=== PATIENT | male | born 1960 | race Caucasian/White ===

== ENCOUNTER 2016-06-18 11:56 | Observation (INO) | payer OTHER ==
[2016-06-18] VITALS (11 sets, daily range): BP systolic 101–171; BP diastolic 62–106; PULSE 66–83; RESP 12–18; TEMP 97.9–98.3; O2SAT 96–98
[~2016-06-18] VITALS: Ht 177.8 cm; Wt 77.5 kg
[~2016-06-18 11:56] MED LIST: 1-ME1LIQ PO; IBUP600T26 PO; PRIN10TA PO; PROT40TA PO
[2016-06-18] MEDS ORDERED: HEPARIN SODIUM - IV 10,000 UNITS/10 ML VIAL IV ONE (12:15)
[2016-06-18] MEDS ORDERED: HEPARIN-D5W INJ 250 ML IV SCH (12:15)
[2016-06-18] MEDS ORDERED: SODIUM CHLORIDE 0.9% FLUSH 5 ML FLUSH IVF PRN ×3 (12:15→17:00)
[2016-06-18] MEDS ORDERED: ASPIRIN 81 MG CHEW TAB PO ONE (12:15)
[2016-06-18] MEDS ORDERED: AMLO5TAB2 PO (12:28)
[2016-06-18] MEDS ORDERED: LISI10TA3 PO (12:28)
[2016-06-18 12:34] LABS: AUTOMATED NEUTROPHIL # 5.9 TH/MM3 (1.8-7.7); BASOPHIL # 0.1 TH/MM3 (0-0.2); BASOPHIL % 0.7 % (0.0-2.0); EOSINOPHIL # 0.1 TH/MM3 (0-0.4); LYMPH % 23.1 % (9.0-44.0); LYMPHOCYTE # 1.9 TH/MM3 (1.0-4.8); MEAN CELL VOLUME 91.1 FL (80.0-100.0); MEAN CORPUSCULAR HEMOGLOBIN 31.5 PG (27.0-34.0); MEAN CORPUSCULAR HGB CONC 34.6 % (32.0-36.0); MONO % 4.5 % (0.0-8.0); NEUT % 70.7 % (16.0-70.0); PLATELET COUNT 299 TH/MM3 (150-450); RED BLOOD COUNT 4.73 MIL/MM3 (4.50-5.90); RED CELL DISTRIBUTION WIDTH 12.5 % (11.6-17.2); WHITE BLOOD COUNT 8.4 TH/MM3 (4.0-11.0)
[2016-06-18 12:35] LABS: HEMO FLAGS AUTO DIFF
[2016-06-18] MEDS: NITROGLYCERIN 0.4 MG SL 25 TABS/BTL SL SCH ×3 (12:38→12:51)
[2016-06-18 12:42] LABS: CHLORIDE 108 MEQ/L (98-107); SODIUM (NA) 143 MEQ/L (136-145)
[2016-06-18 12:43] LABS: POTASSIUM 3.6 MEQ/L (3.5-5.1)
[2016-06-18 12:45] LABS: ANION GAP 9 MEQ/L (5-15); BICARBONATE 26.5 MEQ/L (21.0-32.0); BLOOD UREA NITROGEN 11 MG/DL (7-18); MAGNESIUM 2.3 MG/DL (1.5-2.5)
--- NOTE | 2016-06-18 12:45 | RADHPO ---
EXAM DATE/TIME: 06/18/2016 12:28 [place] COMPARISON: CHEST SINGLE AP, November 30, 2015, 22:02. INDICATIONS : Chest pain, short of breath, dizziness. MEDICAL HISTORY : Hypertension. Cardiovascular disease. SURGICAL HISTORY : None. ENCOUNTER: Initial ACUITY: 1 day PAIN SCORE: 5/10 LOCATION: Bilateral chest FINDINGS: A single view of the chest demonstrates the lungs to be symmetrically aerated without evidence of mas s, infiltrate or effusion. The cardiomediastinal contours are unremarkable. Osseous structures are intact. CONCLUSION: No acute disease. Alan Soliz Jr., MD on June 18, 2016 at 12:43 Board Certified Radiologist. This report was verified electronically.
[2016-06-18 12:46] LABS: APTT (PATIENT) 28.7 SEC (24.3-30.1); PROTHROMBIN TIME - PATIENT 10.8 SEC (9.8-11.6)
[2016-06-18 12:49] LABS: GLOMERULAR FILTRATION RATE 69 ML/MIN (>89)
[2016-06-18 12:52] LABS: CREATINE KINASE 136 U/L (39-308)
[2016-06-18 12:54] LABS: PLATELET ESTIMATE SMEAR NORMAL (NORMAL); PLATELET MORPHOLOGY NORMAL (NORMAL); SCAN/DIFF AUTO DIFF CONFIRMED
--- NOTE | 2016-06-18 12:59 | PD ---
HPI Chief Complaint: Chest Pain Time Seen by Provider: 12:05 Travel History International Travel<30 days: No Contact w/Intl Traveler<30days: No Traveled to known affect area: No History of Present Illness HPI 55-year-old male with history of hypertension and tobacco abuse who presents the emergency department with complaint of chest pain. Patient states approximately 30 minutes ago he had a bad wave of lightheadedness and dizziness with a near syncopal episode. Shortly thereafter approximate 20 minutes prior to arrival he developed substernal chest pain. Describes this as a bandlike sensation wrapping around his anterior chest. No radiation to the back, neck. Patient states that the pain is moderate, approximately 7 out of 10 at this time. He denies any known history of cardiac disease and per chart review he had a left CT scan stress test in November 2015 that was negative. Patient believes that he has also been to [facility] in the interim and was told that he had a "blockage", but does not remember the exact date of this. The never did a cardiac catheterization from his description. No associated shortness of breath, vomiting. PFSH Past Medical History Arthritis: Yes Asthma: No Autoimmune Disease: No Heart Rhythm Problems: No Cardiac Catheterization: No Cardiovascular Problems: Yes High Cholesterol: No Congestive Heart Failure: No COPD: No Coronary Artery Disease: Yes Diabetes: No Diminished Hearing: No Diverticulitis: Yes (Meckel's) Headaches: Yes Hypertension: Yes Kidney Stones: Yes ?: Not Past Surgical History Abdominal Surgery: Yes (Meckel's DIVERTICULUM) Appendectomy: Yes Coronary Artery Bypass Graft: No Social History Alcohol Use: Yes (1-4 BEERS A DAY) Tobacco Use: Yes (ppd) Substance Use: No Allergies-Medications (Allergen,Severity, Reaction): Coded Allergies: Penicillin (Verified Allergy, Severe, Anaphylaxis, 11/30/15) Reported Meds & Prescriptions Reported Meds & Active Scripts Active Reported Lisinopril 10 Mg Tab 10 Mg PO DAILY Amlodipine (Amlodipine Besylate) 5 Mg Tab 5 Mg PO DAILY Review of Systems Except as stated in HPI: all other systems reviewed are Neg Physical Exam Narrative GENERAL: Middle-aged male appearing older than stated age in mild distress SKIN: Warm and dry. HEAD: Normocephalic. EYES: No scleral icterus. No injection or drainage. ENT: No nasal bleeding or discharge. Mucous membranes pink and moist. NECK: Supple without bruit CARDIOVASCULAR: Regular rate and rhythm. No murmur appreciated. No reproducible tenderness to palpation of chest RESPIRATORY: No accessory muscle use. Clear to auscultation. Breath sounds equal bilaterally. GASTROINTESTINAL: Abdomen soft, non-tender, nondistended. MUSCULOSKELETAL: No edema. NEUROLOGICAL: Awake and alert. Normal speech. PSYCHIATRIC: Appropriate mood and affect; insight and judgment normal. Data Data Last Documented VS Vital Signs Date Time Temp Pulse Resp B/P Pulse Ox O2 Delivery O2 Flow Rate FiO2 06/18/16 12:58 16 06/18/16 12:46 73 134/81 98 Room Air 06/18/16 12:00 98.1 Orders Electrocardiogram (06/18/16 12:13) Basic Metabolic Panel (Bmp) (06/18/16 12:13) B-Type Natriuretic Peptide (06/18/16 12:13) Ckmb (Isoenzyme) Profile (06/18/16 12:13) Complete Blood Count With Diff (06/18/16 12:13) Magnesium (Mg) (06/18/16 12:13) Prothrombin Time / Inr (Pt) (06/18/16 12:13) Act Partial Throm Time (Ptt) (06/18/16 12:13) Troponin I (06/18/16 12:13) Chest, Single Ap (06/18/16 12:13) Ecg Monitoring (06/18/16 12:13) Bilateral Bp Monitoring (06/18/16 12:13) Iv Access Insert/Monitor (06/18/16 12:13) Oximetry (06/18/16 12:13) Aspirin Chew (Aspirin Chew) (06/18/16 12:15) Sodium Chloride 0.9% Flush (Ns Flush) (06/18/16 12:15) Nitroglycerin Sl (Nitrostat Sl) (06/18/16 12:15) Heparin Infusion MONA.Q1H (06/18/16 12:13) Heparin Inj (Heparin Inj) (06/18/16 12:15) Heparin Inj (Heparin Inj) (06/18/16 18:15) Heparin Inj (Heparin Inj) (06/18/16 18:15) Heparin-D5w Inj (Heparin-D5w Inj) (06/18/16 12:15) Cbc No Diff, Includes Plts (06/21/16 06:00) Act Partial Throm Time (Ptt) (06/18/16 19:13) Occult Blood (Hemoccult) Stool (06/18/16 12:13) Consult Cardiology (06/18/16 ) CKMB (06/18/16 12:25) CKMB% (06/18/16 12:25) Admit Order (Ed Use Only) (06/18/16 13:07) Place In Observation (06/18/16 ) Ckmb (Isoenzyme) Profile (06/18/16 13:01) Ckmb (Isoenzyme) Profile (06/18/16 19:01) Ckmb (Isoenzyme) Profile (06/19/16 01:01) Thyroid Stimulating Hormone (06/18/16 13:01) Lipid Profile (06/18/16 13:01) Electrocardiogram (06/18/16 13:01) Electrocardiogram (06/18/16 19:01) Electrocardiogram (06/19/16 01:01) ^ Obtain As Needed (06/18/16 13:01) Diet Full Liquid (06/18/16 Lunch) ^ Notify Of These Side Effects (06/18/16 13:01) ^ Notify Dr: Blood Pressure (06/18/16 13:01) ^ Notify Dr: Heart Rate (06/18/16 13:01) Teaching Record: Cardiac Educa MONA.Q12H (06/18/16 13:01) ^ Smoking Cessation Counseling (06/18/16 13:01) Sodium Chloride 0.9% Flush (Ns Flush) (06/18/16 21:00) Sodium Chloride 0.9% Flush (Ns Flush) (06/18/16 13:15) Aspirin Ec (Ecotrin Ec) (06/19/16 09:00) Morphine Inj (Morphine Inj) (06/18/16 13:15) Ondansetron Inj (Zofran Inj) (06/18/16 13:15) Cardiovascular Tech / Telemetry (06/18/16 13:01) Metoprolol Tartrate (Lopressor) (06/18/16 21:00) Atorvastatin (Lipitor) (06/18/16 21:00) Scd Bilateral/Knee High MONA.BID (06/18/16 13:01) Hepatic Functional Panel (06/18/16 13:01) Alcohol Withdrawal Asmt-Ciwa Q4HX18 (06/18/16 13:01) Flumazenil Inj (Romazicon Inj) (06/18/16 13:15) Lorazepam (Ativan) (06/18/16 13:15) Lorazepam Inj (Ativan Inj) (06/18/16 13:15) Lorazepam (Ativan) (06/18/16 13:15) Lorazepam Inj (Ativan Inj) (06/18/16 13:15) Lorazepam Inj (Ativan Inj) (06/18/16 13:15) Lorazepam Inj (Ativan Inj) (06/18/16 13:15) Thiamine (Vit B1) (Vitamin B1) (06/19/16 09:00) Folic Acid (Folate) (06/19/16 09:00) Multivitamin (Theragran) (06/19/16 09:00) Labs Laboratory Tests Test 06/18/16 12:25 White Blood Count 8.4 TH/MM3 Red Blood Count 4.73 MIL/MM3 Hemoglobin 14.9 GM/DL Hematocrit 43.0 % Mean Corpuscular Volume 91.1 FL Mean Corpuscular Hemoglobin 31.5 PG Mean Corpuscular Hemoglobin 34.6 % Concent Red Cell Distribution Width 12.5 % Platelet Count 299 TH/MM3 Mean Platelet Volume 8.7 FL Neutrophils (%) (Auto) 70.7 % Lymphocytes (%) (Auto) 23.1 % Monocytes (%) (Auto) 4.5 % Eosinophils (%) (Auto) 1.0 % Basophils (%) (Auto) 0.7 % Neutrophils # (Auto) 5.9 TH/MM3 Lymphocytes # (Auto) 1.9 TH/MM3 Monocytes # (Auto) 0.4 TH/MM3 Eosinophils # (Auto) 0.1 TH/MM3 Basophils # (Auto) 0.1 TH/MM3 CBC Comment AUTO DIFF Differential Comment AUTO DIFF CONFIRMED Platelet Estimate NORMAL Platelet Morphology Comment NORMAL Red Cell Morphology Comment NORMAL Prothrombin Time 10.8 SEC Prothromb Time International 1.0 RATIO Ratio Activated Partial 28.7 SEC Thromboplast Time Sodium Level 143 MEQ/L Potassium Level 3.6 MEQ/L Chloride Level 108 MEQ/L Carbon Dioxide Level 26.5 MEQ/L Anion Gap 9 MEQ/L Blood Urea Nitrogen 11 MG/DL Creatinine 1.10 MG/DL Estimat Glomerular Filtration 69 ML/MIN Rate Random Glucose 119 MG/DL Calcium Level 8.7 MG/DL Magnesium Level 2.3 MG/DL Total Creatine Kinase 136 U/L Creatine Kinase MB 1.7 NG/ML Troponin I LESS THAN 0.02 NG/ML B-Type Natriuretic Peptide 16 PG/ML MDM Medical Decision Making Medical Screen Exam Complete: Yes Emergency Medical Condition: Yes Medical Record Reviewed: Yes Differential Diagnosis 55-year-old male with history of HTN, tobacco abuse here with complaint of 30 minutes of lightheadedness/presyncope and 20 minutes of substernal bandlike chest pain. Differential includes ACS, atypical chest pain, GERD, arrhythmia, symptomatic anemia, electrolyte abnormality and less likely PE or dissection. Narrative Course Patient was placed on monitor, IV established and blood obtained. A twelve- lead EKG shows sinus rhythm with delta waves, WPW preexcitation type pathway, and it ST depression in V3 through V6 with T-wave inversions in 1 and aVL. These changes are new compared to patient's previous EKG on file here. Patient was given aspirin, nitroglycerin with improvement of his symptoms. I spoke with title insurance examiner Dr. Sherman at 1221 given my concern for non-ST elevation MT, recommended waiting for laboratory results. Portable chest x-ray obtained that by my read shows no acute abnormalities. Patient given heparin bolus and drip. After this, patient is essentially pain-free and states his pain is 1 out of 10 at this time. CBC, BMP, magnesium, CK-MB, troponin, coags were obtained and unremarkable. Patient will be admitted to medicine with cardiology consultation. I was able to obtain records from [facility] and patient was hospitalized there in 2014 with a negative stress test as well. Critical Care Narrative Aggregate critical care time was 50 minutes. Time to perform other separately billable procedures was not included in the critical care time. My time did not include minutes spent treating any other patients simultaneously or on activities that did not directly contribute to the patient's treatment. The services I provided to this patient were to treat and/or prevent clinically significant deterioration that could result in: Cardiopulmonary decompensation, , disability I provided critical care services requiring my management, as noted below: Chart data review, documentation time, medication orders and management, vital sign assessments/reviewing monitor data, ordering and reviewing lab tests, ordering and interpreting/reviewing x-rays and diagnostic studies, care of the patient and discussion of the patient with the admitting physicians. Diagnosis Primary Impression: Non-ST elevation MT (NSTEMI) Admitting Information Admitting Physician Requests: it Jasmyn Cano MD Jun 18, 2016 12:59
[2016-06-18 13:04] LABS: CKMB 1.7 NG/ML (0.5-3.6)
[2016-06-18] MEDS ORDERED: NITROGLYCERIN 2% OINT 1 GM PACKET TOPICAL ONE (13:15)
[2016-06-18] MEDS ORDERED: ONDANSETRON HCL 4 MG/2 ML VIAL IV PRN (13:15)
[2016-06-18] MEDS ORDERED: LORazepam 2 MG/ML VIAL IV PUSH PRN ×4 (13:15)
[2016-06-18] MEDS ORDERED: LORazepam 2 MG TAB PO PRN (13:15)
[2016-06-18] MEDS ORDERED: FLUMAZENIL 0.5 MG/5 ML VIAL IV PUSH PRN (13:15)
[2016-06-18] MEDS ORDERED: LORazepam 1 MG TAB PO PRN (13:15)
[2016-06-18 13:55] LABS: INDIRECT BILIRUBIN 0.5 MG/DL (0.0-0.8); TOTAL BILIRUBIN ADULT 0.6 MG/DL (0.2-1.0)
--- NOTE | 2016-06-18 14:01 | HHI.HP ---
[facility] Service [place] [facility] Primary Care Physician No Primary Care Physician Admission Diagnosis NSTEMI Diagnoses: (1) Atypical chest pain Diagnosis: Principal (2) Hypertension Diagnosis: Secondary (3) Tobacco use Diagnosis: Secondary Chief Complaint: Chest pain, lightheaded, dizziness Travel History International Travel<30 Days: No Contact w/Intl Traveler <30 Da: No Traveled to Known Affected Are: No History of Present Illness 55-year-old male with known history of hypertension who presented to hospital because of multiple symptoms to include: Lightheaded, dizziness, chest discomfort. Patient states that his symptoms started this morning he was at work and he bent over to pick something up and got severely lightheaded. Patient states that he was driving home and he had to pullover alongside the road because he had significant lightheadedness. He states that he does not recall how long he was actually pulled over for. When he got home, he notified his of his symptoms and she decided bring him to the hospital. On his way to the hospital he developed a chest pain. He described it as rubber bands across his chest and squeezing. It was a scale 6/10 on a pain scale. Patient was given nitroglycerin emergency department and his discomfort went down to 1/ 10 on a pain scale. Patient states that he did have some associated nausea but no vomiting. indicates that he had cold sweats. He did have shortness of breath and dyspnea. The pain was across his anterior chest without any radiation to his neck, back, shoulder, arm. ER physician contacted the enologist on-call who recommended the patient be admitted to the [facility] hospital for cardiac catheterization. Patient has been started on heparin IV. Review of Systems Constitutional: COMPLAINS OF: Diaphoretic episodes, Dizziness, DENIES: Fatigue , Fever, Weight gain, Weight loss, Chills, Change in appetite, Night Sweats Eyes: DENIES: Blurred vision, Diplopia, Eye inflammation, Eye pain, Vision loss , Double Vision Ears, nose, mouth, throat: DENIES: Vertigo, Nasal discharge, Throat pain, Ear Pain, Running Nose, Sinus Pain Respiratory: COMPLAINS OF: Shortness of breath, DENIES: Apneas, Cough, Snoring , Wheezing, Hemoptysis, Sputum production Cardiovascular: COMPLAINS OF: Chest pain, DENIES: Palpitations, Syncope, Dyspnea on Exertion, Lower Extremity Edema, Orthopnea Gastrointestinal: COMPLAINS OF: Nausea, DENIES: Abdominal pain, Black stools, Bloody stools, Constipation, Diarrhea, Vomiting, Difficulty Swallowing, Anorexia Neurologic: DENIES: Abnormal gait, Headache, Localized weakness, Paresthesias, Seizures, Speech Problems, Tremor, Poor Balance Psychiatric: DENIES: Anxiety, Confusion, Mood changes, Depression Past Family Social History Past Medical History Hypertension Posttraumatic stress disorder Tobacco use Past Surgical History Jaw fracture with plate Reported Medications Reported Meds & Active Scripts Active Reported Lisinopril 10 Mg Tab 10 Mg PO DAILY Amlodipine (Amlodipine Besylate) 5 Mg Tab 5 Mg PO DAILY Allergies: Coded Allergies: Penicillin (Verified Allergy, Severe, Anaphylaxis, 11/30/15) Family History Reviewed is significant for father having up heart surgery. Head early onset heart disease and 60. Father also with diabetes. Social History Patient does smoke one pack a cigarettes a day. He does not know when he started smoking in because he has posttraumatic stress syndrome and he can't remember back that far. Mr. 2 beers daily, however records indicate that he drinks 1-4 beers daily. Patient denies any illicit drugs Physical Exam Vital Signs Vital Signs Date Time Temp Pulse Resp B/P Pulse Ox O2 Delivery O2 Flow Rate FiO2 06/18/16 12:58 16 06/18/16 12:46 73 16 134/81 98 Room Air 06/18/16 12:44 16 98 Room Air 06/18/16 12:30 78 134/78 135/78 06/18/16 12:00 98.1 78 18 171/106 98 06/18/16 12:00 78 Physical Exam GENERAL: Well-developed, well-nourished, in no acute distress. alert and orientated HEENT: Head is normocephalic without any lesions or masses noted. Facial features are symmetric. Eyes: Pupils equal round reactive to light. Extraocular muscles are intact. Conjunctivae were clear. Oropharyngeal: Pharynx without any erythema edema. Tongue is midline without deviation. Buccal mucosa is moist without any masses or lesions NECK: Supple without any masses. Trachea midline no deviation. No JVD, no bruits are appreciated CARDIAC: Regular rhythm, regular rate. S1/S2 are heard. No murmurs gallops or rubs. LUNGS: Clear to auscultation bilaterally. No wheeze, rhonchi or rales. No use of accessory muscles on inspiration or expiration. ABDOMEN: Soft, nontender. Nondistended. Bowel sounds heard in all 4 quadrants. No organomegaly or masses. Negative rebound, negative guarding EXTREMITIES: No edema, pulses are equal bilaterally. No cyanosis or clubbing NEUROLOGY: Mood and affect appear appropriate. Cranial nerves II through XII grossly intact. Muscle strength 5/5 in upper and lower extremities bilaterally. Deep tendon reflexes are 2+ in upper and lower extremities bilaterally. Laboratory Laboratory Tests Test 06/18/16 12:25 White Blood Count 8.4 Red Blood Count 4.73 Hemoglobin 14.9 Hematocrit 43.0 Mean Corpuscular Volume 91.1 Mean Corpuscular Hemoglobin 31.5 Mean Corpuscular Hemoglobin 34.6 Concent Red Cell Distribution Width 12.5 Platelet Count 299 Mean Platelet Volume 8.7 Neutrophils (%) (Auto) 70.7 Lymphocytes (%) (Auto) 23.1 Monocytes (%) (Auto) 4.5 Eosinophils (%) (Auto) 1.0 Basophils (%) (Auto) 0.7 Neutrophils # (Auto) 5.9 Lymphocytes # (Auto) 1.9 Monocytes # (Auto) 0.4 Eosinophils # (Auto) 0.1 Basophils # (Auto) 0.1 CBC Comment AUTO DIFF Differential Comment AUTO DIFF CONFIRMED Platelet Estimate NORMAL Platelet Morphology Comment NORMAL Red Cell Morphology Comment NORMAL Prothrombin Time 10.8 Prothromb Time International 1.0 Ratio Activated Partial 28.7 Thromboplast Time Sodium Level 143 Potassium Level 3.6 Chloride Level 108 Carbon Dioxide Level 26.5 Anion Gap 9 Blood Urea Nitrogen 11 Creatinine 1.10 Estimat Glomerular Filtration 69 Rate Random Glucose 119 Calcium Level 8.7 Magnesium Level 2.3 Total Creatine Kinase 136 Creatine Kinase MB 1.7 Troponin I LESS THAN 0.02 B-Type Natriuretic Peptide 16 Result Diagram: 06/18/16 1225 06/18/16 1225 Imaging Last Impressions Chest X-Ray 06/18/16 1213 Signed Impressions: Service Date/Time: Saturday, June 18, 2016 12:28 - CONCLUSION: No acute disease. Alan Soliz Jr., MD Assessment and Plan Assessment and Plan Chest pain with associated nausea, shortness of breath, lightheaded, dizziness : Patient with increased risk factors to include age, hypertension, family history of heart disease. Initial cardiac enzyme is negative for any acute cardiac injury. EKG does indicate sinus arrhythmia, Incomplete right bundle branch block, ventricular preexcitation/WPW. Inverted T waves in V2, V3. Because of the EKG findings, the ER physician started patient on heparin IV. Contacted cardiology who recommended patient be transferred to the main hospital for cardiac catheterization. We'll continue to trend cardiac enzymes. Continue serial EKGs. Patient started on aspirin, heparin IV, metoprolol, Lipitor, O2 supplementation, Nitropaste. Will resume patient's lisinopril and amlodipine. Further recommendations from cardiology Hypertension: Continue home medications Daily alcohol use: She monitor for withdrawal symptoms. Started on thiamine and folic acid. Started on CIWA protocol DVT prevention: Heparin Written by Jose M Conley PA-C, acting as scribe for Dr. Renee on 06/18/16 at 1330. The documentation accurately reflects the work and decisions performed face-to- face by Dr. Renee on 06/18/16 at 1330. Problem Qualifiers (1) Hypertension: Qualified Code: I15.9 - Secondary hypertension Jose M Conley Jun 18, 2016 14:00 Marie Renee MD Jun 18, 2016 14:12
[2016-06-18] MEDS: MORPHINE SULFATE 4 MG/ML INJ IV PRN ×3 (14:24→20:37)
[2016-06-18] MEDS ORDERED: IOHEXOL 350 MG/ML 100 ML BTL (for Cath Lab) OTHER ONE (15:43)
[2016-06-18] MEDS ORDERED: MIDAZOLAM HCL 2 MG/2 ML VIAL ONE ×2 (15:50→16:22)
[2016-06-18] MEDS ORDERED: HEPARIN-NS/PF INJ 500 ML ONE (15:50)
[2016-06-18] MEDS ORDERED: VERAPAMIL HCL 5 MG/2 ML VIAL ONE (15:50)
[2016-06-18] MEDS ORDERED: NITROGLYCERIN INJ 5 ML ONE (15:51)
[2016-06-18] MEDS ORDERED: HEPARIN SODIUM - IV 10,000 UNITS/10 ML VIAL ONE (15:51)
[2016-06-18] MEDS ORDERED: MISC INFORMATION XX ONE (17:00)
[2016-06-18] MEDS ORDERED: HEPARIN SODIUM - IV 10,000 UNITS/10 ML VIAL IV PRN ×2 (18:15)
[2016-06-18] MEDS: NITROGLYCERIN 2% OINT 1 GM PACKET TOPICAL SCH (18:42)
[2016-06-18] MEDS: METOPROLOL TARTRATE 25 MG TAB PO SCH (20:35)
[2016-06-18] MEDS: SODIUM CHLORIDE 0.9% FLUSH 5 ML FLUSH IVF SCH (20:35)
[2016-06-18] MEDS ORDERED: SODIUM CHLORIDE 0.9% FLUSH 5 ML FLUSH IVF SCH (21:00)
[2016-06-18] MEDS ORDERED: ATORVASTATIN 10 MG TAB PO SCH (21:00)
[2016-06-18 22:47] LABS: APTT (PATIENT) 28.9 SEC (24.3-30.1)
[2016-06-18 22:52] LABS: HDL CHOLESTEROL 57.8 MG/DL (40.0-60.0)
[2016-06-19] VITALS (12 sets, daily range): BP systolic 109–130; BP diastolic 62–82; PULSE 64–98; RESP 16–18; TEMP 97.8–97.9; O2SAT 95–100
[2016-06-19] MEDS: NITROGLYCERIN 2% OINT 1 GM PACKET TOPICAL SCH ×2 (00:31→06:00)
[2016-06-19] MEDS: MORPHINE SULFATE 4 MG/ML INJ IV PRN ×2 (00:32→08:40)
[2016-06-19 01:25] LABS: CREATINE KINASE 79 U/L (39-308)
--- NOTE | 2016-06-19 05:35 | MB ---
cc: PHAN JACKSON DATE OF 1960 DATE OF CONSULTATION June 18, 2016 REASON FOR CONSULTATION Chest pain. HISTORY OF PRESENT ILLNESS 55-year-old male with cardiac risk factors that include hypertension, active smoker, who presented to the emergency department [place] complaining of lightheadedness, dizziness and chest discomfort. The patient stated he was in his usual state of health until today. 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 In the emergency department his pain was relieved with nitroglycerin. EKG showed sinus rhythm with T-wave depressions in the anterior leads, thus Cardiology, was consulted for further recommendations. The patient denies palpitations, syncope, diarrhea, nausea, bleeding issues, chest trauma, noncompliant with medications, fevers, chills, weight loss, recent travel. The patient was started on IV heparin in the emergency department. REVIEW OF SYSTEMS Negative except for what is mentioned in the HPI. PAST MEDICAL HISTORY 1. History of hypertension. 2. PTSD. 3. Tobacco abuse. PAST SURGICAL HISTORY Jaw fracture with a plate. ALLERGIES No known drug allergies. HOME MEDICATIONS 1. Lisinopril 10 mg p.o. daily 2. Norvasc 5 mg p.o. daily FAMILY HISTORY His Dad had heart surgery. Also family history of diabetes. SOCIAL HISTORY He is a smoker. He smokes one-pack of cigarettes a day. He reports he drinks, however, socially. He denies illicit drug use. PHYSICAL EXAMINATION VITAL SIGNS: Temperature 98.1, respiratory rate 18, heart rate 68, blood pressure was 136/87, O2 sat 97% on room air. GENERAL: He is awake, alert, oriented x 3, in no acute distress. NECK: No JVD, no carotid bruits. HEART: Regular rate and rhythm. No murmurs, rubs or gallops appreciated. LUNGS: Clear to auscultation bilaterally. ABDOMEN: Positive bowel sounds. Soft, nontender, nondistended. EXTREMITIES: No cyanosis, no edema and pulses throughout. DATA CBC - Hemoglobin 14, hematocrit 43 and platelet count 299. INR 1. Chemistries - Sodium 143, potassium 3.6, BUN 11, creatinine 1.1. Troponin less than 0.02. BNP 16. CHEST X-RAY No acute cardiopulmonary process. EKG Sinus rhythm with incomplete right bundle branch block and T-wave depressions from V1 to V4. ASSESSMENT AND PLAN 55-year-old male with cardiac risk factors that include hypertension, smoking, that presented to the hospital with atypical chest pain and new EKG changes suggestive of ischemia. He remains hemodynamically stable and chest pain-free. At this point I think it would be reasonable to undergo invasive risk strategy to further assess CAD progression. The risks and benefits of left heart cath/ intervention including but not limited to bleeding, infection, dissection, acute kidney injury, TN, emergent bypass surgery, stroke and have been explained to the patient. The patient understands the risks and he is willing to proceed. We will keep the patient n.p.o. and we will prepare for the [employer] Representative this afternoon. Continue aggressive medical management. RECOMMENDATIONS 1. Keep n.p.o. for left heart cath today. 2. Continue medical management. Thank you for the opportunity to take part in the care of this patient. Further therapy to be determined. Phan Jackson MD KELLER MACHINE OPERATOR/SSB /4:07 PM /5:26 AM [facility]
--- NOTE | 2016-06-19 06:42 | MA ---
cc: PHAN JACKSON DATE 06/18/2016 DATE OF 1960 PROCEDURE PERFORMED 1. Left heart catheterization 2. Left ventriculogram 3. iFR to RCA. INDICATION Angina/ACS/EKG depressions APPROACH Right transradial PROCEDURE DESCRIPTION Consent signed. The patient was brought into the cardiac prosthetic lab technician in a fasting state. The right wrist was prepped and draped in a sterile fashion. Using 1% lidocaine for local anesthesia and a micropuncture kit, a 6-Faroese sheath was inserted into the right radial artery. Antispasmodic cocktail given, then selective right and left coronary angiography was performed with a JR-4 and a JL -3.5. Angiography was taken in multiple views. An angled pigtail was introduced into the left ventricle followed by pressure recordings, left ventriculogram and pullback. There was a questionable 60% lesion in the proximal right coronary artery that we perform iFR. For this, the right coronary artery was engaged with a JR-4 guide followed by equalizing the iFR wire outside the vessel. Heparin was given for IV anticoagulation. iFR value 1 = negative for ischemia. The patient tolerated the procedure well without complications. Estimated blood loss less than 30 cc Total contrast used 100 cc. The right wrist access site was closed with a TR band. RESULTS Left ventricle. The left ventricular pressure was 97/30 with an LVEDP of 8. The aortic pressure was 94/70 with an mean of 81. The left ventriculogram revealed a symmetric milton ventricle with an EF of 60%. ANGIOGRAPHIC RESULTS 1. Right coronary artery is dominant giving off the PDA, has minimal luminal irregularities throughout. It has a 40% lesion proximally. 2. Left main is short with nonobstructive coronary artery disease. 3. LAD is a transapical vessel. It gives a prominent first septal and also a prominent first diagonal that bifurcates. The LAD has luminal irregularities, is tortuous, however is patent with nonobstructive CAD and DEVI-3 flow. 4. The left circumflex artery has minimal irregularities, has a prominent OM-1 which is patent with nonobstructive CAD. Also, the circumflex has smaller OM-2 , 3 and 4 which are small. CONCLUSION 1. Nonobstructive coronary artery disease. 2. Preserved LV systolic function. RECOMMENDATIONS 1. Continue aggressive medical management for primary prevention of coronary artery disease. 2. Smoking cessation is advised. MD LUCIA Obrien/BELKYS /5:02 PM /6:31 AM BARNEY
[2016-06-19] MEDS: METOPROLOL TARTRATE 25 MG TAB PO SCH (08:39)
[2016-06-19] MEDS: SODIUM CHLORIDE 0.9% FLUSH 5 ML FLUSH IVF SCH (08:41)
[2016-06-19] MEDS ORDERED: MULTIVITAMIN TAB PO SCH (09:00)
[2016-06-19] MEDS ORDERED: ASPIRIN EC 325 MG TABEC PO SCH (09:00)
[2016-06-19] MEDS ORDERED: FOLIC ACID 1 MG TAB PO SCH (09:00)
[2016-06-19] MEDS ORDERED: amLODIPine BESYLATE 5 MG TAB PO SCH (09:00)
[2016-06-19] MEDS ORDERED: LISINOPRIL 10 MG TAB PO SCH (09:00)
[2016-06-19] MEDS ORDERED: THIAMINE HCL 100 MG TAB PO SCH (09:00)
[2016-06-19] MEDS ORDERED: NICOTINE 21 MG/24 HR PATCH TD SCH (09:30)
--- NOTE | 2016-06-19 10:44 | HHI.PR ---
Subjective Remarks Follow-up chest pain. Denies further chest pain reports of discomfort over right wrist where he had cardiac catheterization. No history of his DVT, PE, leg pain and swelling. Reports of intermittent heartburn symptoms. Denies fever, chills, cough. Discussed with RN Objective Vitals Vital Signs Date Time Temp Pulse Resp B/P Pulse Ox O2 Delivery O2 Flow Rate FiO2 06/19/16 10:18 76 06/19/16 09:00 75 06/19/16 08:46 18 06/19/16 08:00 78 06/19/16 08:00 97.9 73 18 119/82 96 06/19/16 08:00 96 06/19/16 06:00 68 06/19/16 05:00 68 06/19/16 04:00 66 06/19/16 03:00 75 06/19/16 03:00 78 16 109/62 95 06/19/16 02:00 64 06/19/16 01:00 66 06/19/16 00:00 68 06/18/16 23:00 68 06/18/16 23:00 97.9 68 12 101/79 96 06/18/16 22:00 66 06/18/16 21:00 70 06/18/16 20:00 76 06/18/16 19:00 83 06/18/16 19:00 98.3 70 14 138/81 96 06/18/16 18:20 97.9 74 18 113/62 98 06/18/16 14:27 68 18 136/87 97 Room Air 06/18/16 12:58 16 06/18/16 12:46 73 16 134/81 98 Room Air 06/18/16 12:44 16 98 Room Air 06/18/16 12:30 78 134/78 135/78 06/18/16 12:00 98.1 78 18 171/106 98 06/18/16 12:00 78 I/O 06/18/16 06/18/16 06/18/16 06/19/16 06/19/16 06/19/16 07:00 15:00 23:00 07:00 15:00 23:00 Intake Total 480 ml Output Total 700 ml Balance -220 ml Intake Oral 480 ml Output Urine Total 700 ml Result Diagram: 06/18/16 1225 06/18/16 1225 Imaging Last Impressions Chest X-Ray 06/18/16 1213 Signed Impressions: Service Date/Time: Saturday, June 18, 2016 12:28 - CONCLUSION: No acute disease. Alan Soliz Jr., MD Objective Remarks GENERAL: Well-developed, well-nourished, in no acute distress. alert and orientated HEENT: Head is normocephalic without any lesions or masses noted. Facial features are symmetric. Eyes: Pupils equal round reactive to light. Extraocular muscles are intact. Conjunctivae were clear. Oropharyngeal: Pharynx without any erythema edema. Tongue is midline without deviation. Buccal mucosa is moist without any masses or lesions NECK: Supple without any masses. Trachea midline no deviation. No JVD, no bruits are appreciated CARDIAC: Regular rhythm, regular rate. S1/S2 are heard. No murmurs gallops or rubs. LUNGS: Clear to auscultation bilaterally. No wheeze, rhonchi or rales. No use of accessory muscles on inspiration or expiration. ABDOMEN: Soft, nontender. Nondistended. Bowel sounds heard in all 4 quadrants. No organomegaly or masses. Negative rebound, negative guarding EXTREMITIES: No edema, pulses are equal bilaterally. No cyanosis or clubbing. Right wrist with dry dressing NEUROLOGY: Mood and affect appear appropriate. Cranial nerves II through XII grossly intact. Muscle strength 5/5 in upper and lower extremities bilaterally. Deep tendon reflexes are 2+ in upper and lower extremities bilaterally. Procedures cardiac cath A/P Problem List: (1) Atypical chest pain ICD Code: R07.89 Status: Acute (2) Hypertension ICD Code: I10 Status: Chronic (3) Tobacco use ICD Code: Z72.0 Status: Chronic Assessment and Plan Chest pain status post cardiac catheterization with nonobstructive CAD. Recommended medical management with aspirin, Lopressor, Lipitor and tobacco cessation. No further chest pain. Doubt PE. Could also be from GERD. Start PPI. Antireflux mechanisms discussed with the patient. Hypertension: Continue home medications Daily alcohol use: He wants to quit we'll start Librium monitor for withdrawal symptoms. Started on thiamine and folic acid. Started on CIWA protocol DVT prevention: Heparin Discharge Planning Discharge patient to home Condition on discharge: Improved Regular Diet as tolerated Ad Sarai activity, no driving Rx written: Aspirin, Lipitor, Librium, metoprolol, Protonix and thiamine Follow-up with primary care physician 1 week Problem Qualifiers (1) Hypertension: Qualified Code: I15.9 - Secondary hypertension Preston Avalos MD Jun 19, 2016 10:44
[2016-06-19 11:17] LABS: HEMOGLOBIN A1a 1.1 %; HEMOGLOBIN A1b 0.9 %; HEMOGLOBIN Ao 84.4 %; HEMOGLOBIN F 1.6 %; HEMOGLOBIN LA1C 2.1 %; HEMOGLOBIN P3 3.8 %
[2016-06-19] MEDS ORDERED: VITA100T2 PO (12:10)
[2016-06-19] MEDS ORDERED: METO25TA3 PO (12:10)
[2016-06-19] MEDS ORDERED: LIPI10TA PO (12:10)
[2016-06-19] MEDS ORDERED: ASPI81TA11 PO (12:10)
--- NOTE | 2016-06-19 12:11 | HHI.DCPOC ---
Discharge Care Plan Diagnosis: (1) Hypertension (2) Atypical chest pain Your Health Problems Are: Difficulty with ADL Chest Pain Exercise Tolerance Goals to Promote Your Health * To prevent worsening of your condition and complications * To maintain your health at the optimal level Directions to Meet Your Goals Take your medications as prescribed Follow your dietary instruction Follow activity as directed Keep your appointments as scheduled Take your immunizations and boosters as scheduled If your symptoms worsen call your PCP, if no PCP go to Urgent Care Center or Emergency Room Smoking is Dangerous to Your Health. Avoid second hand smoke Call the 24-hour hour crisis hotline for domestic abuse at Preston Avalos MD Jun 19, 2016 12:11
[2016-06-19] MEDS ORDERED: CHLO25CA2 PO (12:28)
[2016-06-19] MEDS ORDERED: PROT40TA PO (12:34)
[2016-06-19] MEDS ORDERED: REMOVE OLD NICODERM (NICOTINE) PATCH TD SCH (21:00)
[2016-06-19] MEDS ORDERED: ATORVASTATIN 10 MG TAB PO SCH (21:00)
--- NOTE | 2016-06-20 07:00 | EKG ---
Date Performed: 06/18/2016 Time Performed: 13:22:02 PTAGE: 55 years EKG: Sinus rhythm Possible WPW pattern Consider inferior CT, age indeterminate Consider anterolateral ischemia Abnorma l ECG PREVIOUS TRACING : 06/18/2016 12.01 DOCTOR: Murphy Chahal Interpretating Date/Time 06/20/2016 06:58:50
--- NOTE | 2016-06-20 07:00 | EKG ---
Date Performed: 06/19/2016 Time Performed: 01:00:26 PTAGE: 55 years EKG: Sinus rhythm Possible WPW pattern Consider inferior [place], age indeterminate Left bundle branch block Consider anter olateral ischemia Abnormal ECG PREVIOUS TRACING : 06/18/2016 13.58 DOCTOR: Murphy Chahal Interpretating Date/Time 06/20/2016 06:59:58
--- NOTE | 2016-06-20 07:00 | EKG ---
Date Performed: 06/18/2016 Time Performed: 12:01:36 PTAGE: 55 years EKG: Sinus rhythm Right bundle branch block Lateral ST-T changes are nonspecific Consider anterolateral ischemia Consi randell WPW Consider inferior [place], age indeterminate Abnormal ECG PREVIOUS TRACING : 12/01/2015 03.43 DOCTOR: Murphy Chahal Interpretating Date/Time 06/20/2016 06:58:22
--- NOTE | 2016-06-20 07:00 | EKG ---
Date Performed: 06/18/2016 Time Performed: 13:58:16 PTAGE: 55 years EKG: Sinus rhythm Possible WPW pattern Consider inferior [place], age indeterminate Consider anterolateral ischemia Right b undle branch block Abnormal ECG PREVIOUS TRACING : 06/18/2016 13.22 DOCTOR: Murphy Chahal Interpretating Date/Time 06/20/2016 06:59:21
--- NOTE | 2016-06-20 07:01 | EKG ---
Date Performed: 06/19/2016 Time Performed: 05:47:26 PTAGE: 55 years EKG: Sinus rhythm Right bundle branch block Inferior infarct - age undetermined Consider anterolateral ischemia Consid er WPW pattern Abnormal ECG PREVIOUS TRACING : 06/19/2016 01.00 DOCTOR: Murphy Chahal Interpretating Date/Time 06/20/2016 07:00:19
[2016-06-20] MEDS ORDERED: ASPIRIN EC 81 MG TABEC PO SCH (09:00)
== END 2016-06-19 13:07 | disposition home or self-care (01) ==
LOC: PHED 11:56 → PHEDA 13:03 → HCIS 17:38
PROVIDERS: ADMIT Internal Medicine; ATTEND Internal Medicine
DX: I21.4 Non-ST elevation (NSTEMI) myocardial infarction (principal); R55 Syncope and collapse; R42 Dizziness and giddiness; I25.119 Atherosclerotic heart disease of native coronary artery with unspecified angina pectoris; K57.92 Diverticulitis of intestine, part unspecified, without perforation or abscess without bleeding; R51 Headache; F17.210 Nicotine dependence, cigarettes, uncomplicated; Z72.89 Other problems related to lifestyle; R11.0 Nausea; F43.10 Post-traumatic stress disorder, unspecified; I45.10 Unspecified right bundle-branch block; I45.6 Pre-excitation syndrome; I15.9 Secondary hypertension, unspecified
CPT/HCPCS: 71010; 80048; 80061; 80076; 82550; 82552; 83036; 83735; 83880; 84443; 84484; 85025; 85610; 85730; 93005; 93458; 93571; 96374; 96375; 99291; C1769; C1887; C1893; G0378; J1644; J2060; J2250; J2270; J3010; Q9967

== ENCOUNTER 2016-08-08 22:01 | Emergency (ER) | payer OTHER ==
[~2016-08-08] VITALS: Ht 180.3 cm; Wt 79.2 kg
[~2016-08-08 22:01] MED LIST changes: -1-ME1LIQ PO; +AMLO5TAB2 PO; +ASPI81TA11 PO; +CHLO25CA2 PO; -IBUP600T26 PO; +LIPI10TA PO; +LISI10TA3 PO; +METO25TA3 PO; -PRIN10TA PO; +VITA100T2 PO
[2016-08-08 22:15] VITALS: BP 147/100; PULSE 71; RESP 18; TEMP 98.5; O2SAT 97
[2016-08-08 22:20] VITALS: O2SAT 97
[2016-08-08 22:42] LABS: BASOPHIL % 0.4 % (0.0-2.0); EOSINOPHIL # 0.2 TH/MM3 (0-0.4); EOSINOPHIL % 2.1 % (0.0-4.0); HEMATOCRIT 45.5 % (39.0-51.0); HEMO FLAGS DIFF FINAL; LYMPH % 37.9 % (9.0-44.0); LYMPHOCYTE # 2.9 TH/MM3 (1.0-4.8); MEAN CELL VOLUME 91.7 FL (80.0-100.0); MEAN CORPUSCULAR HEMOGLOBIN 31.7 PG (27.0-34.0); MEAN CORPUSCULAR HGB CONC 34.5 % (32.0-36.0); MONO % 7.5 % (0.0-8.0); NEUT % 52.1 % (16.0-70.0); PLATELET COUNT 281 TH/MM3 (150-450); RED BLOOD COUNT 4.96 MIL/MM3 (4.50-5.90); RED CELL DISTRIBUTION WIDTH 13.6 % (11.6-17.2); WHITE BLOOD COUNT 7.7 TH/MM3 (4.0-11.0)
[2016-08-08 22:50] LABS: CHLORIDE 105 MEQ/L (98-107); POTASSIUM 3.5 MEQ/L (3.5-5.1); SODIUM (NA) 143 MEQ/L (136-145)
[2016-08-08 22:52] LABS: ANION GAP 9 MEQ/L (5-15); BICARBONATE 28.7 MEQ/L (21.0-32.0)
[2016-08-08 22:53] LABS: BLOOD UREA NITROGEN 18 MG/DL (7-18)
[2016-08-08 22:56] LABS: GLOMERULAR FILTRATION RATE 42 ML/MIN (>89)
[2016-08-08 22:59] LABS: CREATINE KINASE 40 U/L (39-308)
--- NOTE | 2016-08-08 23:01 | RADHPO ---
EXAM DATE/TIME: 08/08/2016 22:30 [facility] COMPARISON: CHEST SINGLE AP, June 18, 2016, 12:28. INDICATIONS : Chest pain. MEDICAL HISTORY : Hypertension. Cardiovascular disease. SURGICAL HISTORY : None. ENCOUNTER: Initial ACUITY: 1 day PAIN SCORE: 6/10 LOCATION: Bilateral chest FINDINGS: Trace right base atelectasis. No infiltrate seen. No pleural effusion or pneumothorax. Normal, stable heart size. CONCLUSION: Trace right base atelectasis. Eleazar Colin MD on August 08, 2016 at 22:59 Board Certified Radiologist. This report was verified electronically.
[2016-08-08 23:24] VITALS: BP 140/86; PULSE 68; O2SAT 96
--- NOTE | 2016-08-08 23:52 | PD ---
HPI Chief Complaint: Chest Pain Time Seen by Provider: 23:26 Travel History International Travel<30 days: No Contact w/Intl Traveler<30days: No Traveled to known affect area: No History of Present Illness HPI The patient is a 56-year-old male with no history of coronary artery disease and who has had a recent angiogram in May of this year which showed no significant coronary artery disease and preserved LV systolic function who complains of a substernal chest pain lasting for 35 minutes on his anterior chest wall. He denies any nausea, shortness of breath or diaphoresis or radiation of pain. This is a same pain that he was admitted for in May and subsequent normal angiogram was done. The patient also states that his pressure went up was watching TV. The blood pressure is now 140/86. He does smoke one half pack a day and is trying to cut down. PFSH Past Medical History Arthritis: Yes Asthma: No Autoimmune Disease: No Heart Rhythm Problems: No Cardiac Catheterization: No Cardiovascular Problems: Yes High Cholesterol: No Congestive Heart Failure: No COPD: No Coronary Artery Disease: Yes Diabetes: No Diminished Hearing: No Diverticulitis: Yes Headaches: Yes Heparin Induced Thrombocytopen: No Hypertension: Yes Kidney Stones: Yes Tetanus Vaccination: > 5 Years Influenza Vaccination: No Past Surgical History Abdominal Surgery: Yes (Meckel's diverticulum) Appendectomy: Yes Coronary Artery Bypass Graft: No Social History Alcohol Use: Yes (Denies today ) Tobacco Use: Yes (1 PPD) Substance Use: No Allergies-Medications (Allergen,Severity, Reaction): Coded Allergies: Penicillin (Verified Allergy, Severe, Anaphylaxis, 08/08/16) Reported Meds & Prescriptions Reported Meds & Active Scripts Active Protonix (Pantoprazole Sodium) 40 Mg Tab 40 Mg PO DAILY Chlordiazepoxide (Chlordiazepoxide HCl) 25 Mg Cap 25 Mg PO TID PRN Take THREE Times daily for 3 Days, then TWICE daily for 3 days, then ONCE a day for 3 Days. Vitamin B-1 (Thiamine HCl) 100 Mg Tab 100 Mg PO DAILY Metoprolol Tartrate 25 Mg Tab 12.5 Mg PO BID Lipitor (Atorvastatin Calcium) 10 Mg Tab 10 Mg PO HS Aspirin EC (Aspirin) 81 Mg Tabdr 81 Mg PO DAILY Reported Lisinopril 10 Mg Tab 10 Mg PO DAILY Amlodipine (Amlodipine Besylate) 5 Mg Tab 5 Mg PO DAILY Review of Systems Except as stated in HPI: all other systems reviewed are Neg Physical Exam Narrative GENERAL: The patient is alert, oriented 3 and minimal apparent distress. He does appear anxious. His vital signs show blood pressure 140/86 and are otherwise normal. SKIN: Focused skin assessment warm/dry. HEAD: Atraumatic. Normocephalic. EYES: Pupils equal and round. No scleral icterus. No injection or drainage. ENT: No nasal bleeding or discharge. Mucous membranes pink and moist. NECK: Trachea midline. No JVD. CARDIOVASCULAR: Regular rate and rhythm. No murmur appreciated. RESPIRATORY: No accessory muscle use. Clear to auscultation. Breath sounds equal bilaterally. GASTROINTESTINAL: Abdomen soft, non-tender, nondistended. Hepatic and splenic margins not palpable. I can completely reproduce the patient's chest discomfort by pressing on the midline epigastrium just below the sternum. MUSCULOSKELETAL: No obvious deformities. No clubbing. No cyanosis. No edema. NEUROLOGICAL: Awake and alert. No obvious cranial nerve deficits. Motor grossly within normal limits. Normal speech. PSYCHIATRIC: The patient does appear anxious; insight and judgment normal. Data Data Last Documented VS Vital Signs Date Time Temp Pulse Resp B/P Pulse Ox O2 Delivery O2 Flow Rate FiO2 08/08/16 23:24 68 140/86 96 Room Air 08/08/16 22:20 18 08/08/16 22:15 98.5 Orders Electrocardiogram (08/08/16 22:18) Complete Blood Count With Diff (08/08/16 22:18) Basic Metabolic Panel (Bmp) (08/08/16 22:18) Ckmb (Isoenzyme) Profile (08/08/16 22:18) Troponin I (08/08/16 22:18) Iv Access Insert/Monitor (08/08/16 22:18) Ecg Monitoring (08/08/16 22:18) Oxygen Administration (08/08/16 22:18) Oximetry (08/08/16 22:18) Chest, Pa & Lat (08/08/16 ) Act Partial Throm Time (Ptt) (08/08/16 22:22) Labs Laboratory Tests Test 08/08/16 22:15 White Blood Count 7.7 TH/MM3 Red Blood Count 4.96 MIL/MM3 Hemoglobin 15.7 GM/DL Hematocrit 45.5 % Mean Corpuscular Volume 91.7 FL Mean Corpuscular Hemoglobin 31.7 PG Mean Corpuscular Hemoglobin 34.5 % Concent Red Cell Distribution Width 13.6 % Platelet Count 281 TH/MM3 Mean Platelet Volume 8.6 FL Neutrophils (%) (Auto) 52.1 % Lymphocytes (%) (Auto) 37.9 % Monocytes (%) (Auto) 7.5 % Eosinophils (%) (Auto) 2.1 % Basophils (%) (Auto) 0.4 % Neutrophils # (Auto) 4.0 TH/MM3 Lymphocytes # (Auto) 2.9 TH/MM3 Monocytes # (Auto) 0.6 TH/MM3 Eosinophils # (Auto) 0.2 TH/MM3 Basophils # (Auto) 0.0 TH/MM3 CBC Comment DIFF FINAL Differential Comment Activated Partial 28.0 SEC Thromboplast Time Sodium Level 143 MEQ/L Potassium Level 3.5 MEQ/L Chloride Level 105 MEQ/L Carbon Dioxide Level 28.7 MEQ/L Anion Gap 9 MEQ/L Blood Urea Nitrogen 18 MG/DL Creatinine 1.70 MG/DL Estimat Glomerular Filtration 42 ML/MIN Rate Random Glucose 93 MG/DL Calcium Level 8.8 MG/DL Total Creatine Kinase 40 U/L Troponin I LESS THAN 0.02 NG/ML MDM Medical Decision Making Medical Screen Exam Complete: Yes Emergency Medical Condition: Yes Medical Record Reviewed: Yes Interpretation(s) The EKG is completely normal with normal sinus rhythm rate of 70. The CBC is normal. The basic metabolic profile shows a creatinine 1.7 and GFR 42 but is otherwise normal. The cardiac enzymes are normal. The coagulation profile is normal. Differential Diagnosis Acute coronary syndromeunlikely, esophageal pain, gastrointestinal pain, chest wall pain, pleuritic pain, electrolyte disorder, anxiety, hypertension Narrative Course The patient appears to have gastrointestinal pain. It is completely reproducible by pressure on the epigastrium. The patient apparently has a high blood pressure at home which resolved with simple rest here. He has had a recent normal angiogram. He does appear anxious. Diagnosis Primary Impression: Non-cardiac chest pain Additional Impression: Anxiety Additional Instructions: Follow-up with a primary care physician. Also discontinue smoking completely. Disposition: 01 DISCHARGE HOME Condition: Stable Austen Conley MD Aug 08, 2016 23:52
--- NOTE | 2016-08-10 08:03 | EKG ---
Date Performed: 08/08/2016 Time Performed: 22:05:46 PTAGE: 56 years EKG: Sinus rhythm Normal ECG Compared to PREVIOUS TRACING , right bundle branch block and WPW pattern are no longer seen. PREVIOUS TRACING 06/19/2016 05.47.26 DOCTOR: Neo Santacruz Interpretating Date/Time 08/10/2016 08:02:09
== END 2016-08-09 00:03 | disposition home or self-care (01) ==
LOC: PHED 22:01
DX: R07.89 Other chest pain (principal); F41.9 Anxiety disorder, unspecified; I10 Essential (primary) hypertension; Z87.442 Personal history of urinary calculi; F17.210 Nicotine dependence, cigarettes, uncomplicated
CPT/HCPCS: 71020; 80048; 82550; 84484; 85025; 85730; 93005

== ENCOUNTER 2016-09-16 18:12 | Emergency (ER) | payer OTHER ==
[~2016-09-16] VITALS: Ht 180.3 cm; Wt 77.0 kg
[2016-09-16 18:15] VITALS: BP 147/110; PULSE 92; RESP 16; TEMP 98.3; O2SAT 96
--- NOTE | 2016-09-16 18:35 | PD ---
HPI Chief Complaint: Hypertension Time Seen by Provider: 18:24 Travel History International Travel<30 days: No Contact w/Intl Traveler<30days: No Traveled to known affect area: No History of Present Illness HPI This 56-year-old male is complaining of right-sided headache. He says the headache started around 2:00 this afternoon and has been fairly persistent. It involves the right side of his head. He feels like his right eye has been popped out and is also having right occipital pain. He does not recall having headaches like this before. He does have a history of hypertension and isn't taking his blood pressure repeatedly at home and elevate. He says there is been no recent change in his blood pressure medicines [facility] Past Medical History Arthritis: Yes Asthma: No Autoimmune Disease: No Heart Rhythm Problems: No Cardiac Catheterization: No Cardiovascular Problems: Yes High Cholesterol: No Congestive Heart Failure: No COPD: No Coronary Artery Disease: Yes Diabetes: No Diminished Hearing: No Diverticulitis: Yes Headaches: Yes Heparin Induced Thrombocytopen: No Hypertension: Yes Kidney Stones: Yes Influenza Vaccination: Yes ?: Not Past Surgical History Abdominal Surgery: Yes (Meckel's diverticulum) Appendectomy: Yes Coronary Artery Bypass Graft: No Social History Alcohol Use: Yes (Denies today ) Tobacco Use: Yes (few aday) Substance Use: No Allergies-Medications (Allergen,Severity, Reaction): Coded Allergies: Penicillin (Verified Allergy, Severe, Anaphylaxis, 09/16/16) Reported Meds & Prescriptions Reported Meds & Active Scripts Active Protonix (Pantoprazole Sodium) 40 Mg Tab 40 Mg PO DAILY Vitamin B-1 (Thiamine HCl) 100 Mg Tab 100 Mg PO DAILY Metoprolol Tartrate 25 Mg Tab 12.5 Mg PO BID Lipitor (Atorvastatin Calcium) 10 Mg Tab 10 Mg PO HS Aspirin EC (Aspirin) 81 Mg Tabdr 81 Mg PO DAILY Reported Lisinopril 10 Mg Tab 10 Mg PO DAILY Amlodipine (Amlodipine Besylate) 5 Mg Tab 5 Mg PO DAILY Review of Systems General / Constitutional: No: Fever, Chills Eyes: No: Diploplia, Blurred Vision HENT: Positive: Headaches Cardiovascular: No: Chest Pain or Discomfort, Palpitations Respiratory: No: Cough, Shortness of Breath Gastrointestinal: No: Nausea, Vomiting Genitourinary: No: Frequency Musculoskeletal: No: Myalgias, Arthralgias Skin: No Rash Neurologic: Positive: Headache, No: Focal Abnormalities Endocrine: No: Heat Intolerance, Cold Intolerance Hematologic/Lymphatic: No: Easy Bruising Physical Exam Narrative GENERAL: Well-developed male SKIN: Focused skin assessment warm/dry. HEAD: Atraumatic. Normocephalic. EYES: Pupils equal and round. No scleral icterus. No injection or drainage. ENT: No nasal bleeding or discharge. Mucous membranes pink and moist. NECK: Trachea midline. No JVD. CARDIOVASCULAR: Regular rate and rhythm. No murmur appreciated. RESPIRATORY: No accessory muscle use. Clear to auscultation. Breath sounds equal bilaterally. GASTROINTESTINAL: Abdomen soft, non-tender, nondistended. Hepatic and splenic margins not palpable. MUSCULOSKELETAL: No obvious deformities. No clubbing. No cyanosis. No edema. NEUROLOGICAL: Awake and alert. No obvious cranial nerve deficits. Apprentice Architect equal. Leg strength symmetric. Normal speech. PSYCHIATRIC: Appropriate mood and affect; insight and judgment normal. Data Data Last Documented VS Vital Signs Date Time Temp Pulse Resp B/P Pulse Ox O2 Delivery O2 Flow Rate FiO2 09/16/16 18:15 98.3 92 16 147/110 96 Orders Complete Blood Count With Diff (09/16/16 18:31) Basic Metabolic Panel (Bmp) (09/16/16 18:31) Ct Brain W/O Iv Contrast(Rout) (09/16/16 18:31) Ketorolac Inj (Toradol Inj) (09/16/16 18:45) Prochlorperazine Inj (Compazine Inj) (09/16/16 18:45) Clonidine (Catapres) (09/16/16 18:45) Labs Laboratory Tests Test 09/16/16 13:38 White Blood Count 9.7 TH/MM3 Red Blood Count 5.17 MIL/MM3 Hemoglobin 16.5 GM/DL Hematocrit 48.2 % Mean Corpuscular Volume 93.2 FL Mean Corpuscular Hemoglobin 31.9 PG Mean Corpuscular Hemoglobin 34.3 % Concent Red Cell Distribution Width 13.7 % Platelet Count 268 TH/MM3 Mean Platelet Volume 8.8 FL Neutrophils (%) (Auto) 74.4 % Lymphocytes (%) (Auto) 19.4 % Monocytes (%) (Auto) 5.1 % Eosinophils (%) (Auto) 0.6 % Basophils (%) (Auto) 0.5 % Neutrophils # (Auto) 7.2 TH/MM3 Lymphocytes # (Auto) 1.9 TH/MM3 Monocytes # (Auto) 0.5 TH/MM3 Eosinophils # (Auto) 0.1 TH/MM3 Basophils # (Auto) 0.0 TH/MM3 CBC Comment DIFF FINAL Differential Comment Sodium Level 141 MEQ/L Potassium Level 3.7 MEQ/L Chloride Level 109 MEQ/L Carbon Dioxide Level 24.5 MEQ/L Anion Gap 8 MEQ/L Blood Urea Nitrogen 8 MG/DL Random Glucose 109 MG/DL Calcium Level 8.9 MG/DL MDM Medical Decision Making Medical Screen Exam Complete: Yes Emergency Medical Condition: Yes Medical Record Reviewed: Yes Differential Diagnosis Differential includes hypertension, injured her hemorrhage, headache Narrative Course CT is negative for headache. Patient was given clonidine with good response. He is also given Toradol and Compazine. His headache is improved. He is stable for discharge. His blood pressures have been running high and he is only on 10 mg of lisinopril . I will recommend that he take 20 mg daily Diagnosis Primary Impression: Hypertension Qualified Code: I10 - Essential hypertension Additional Impression: Headache Qualified Code: R51 - Acute nonintractable headache, unspecified headache type Scripts Lisinopril 20 Mg Tab20 Mg PO DAILY #30 TAB Ref 0 Prov:Khari Lamb MD 09/16/16 Disposition: 01 DISCHARGE HOME Condition: Stable Khari Lamb MD September 16, 2016 18:35
[2016-09-16] MEDS ORDERED: KETOROLAC TROMETHAMINE 30 MG/ML (IVP) VIAL IV PUSH ONE (18:45)
[2016-09-16] MEDS ORDERED: cloNIDine HCL 0.1 MG TAB PO ONE (18:45)
[2016-09-16] MEDS ORDERED: PROCHLORPERAZINE INJ 10 MG/2 ML VIAL IV PUSH ONE (18:45)
[2016-09-16 18:59] LABS: AUTOMATED NEUTROPHIL # 7.2 TH/MM3 (1.8-7.7); BASOPHIL % 0.5 % (0.0-2.0); EOSINOPHIL # 0.1 TH/MM3 (0-0.4); EOSINOPHIL % 0.6 % (0.0-4.0); HEMATOCRIT 48.2 % (39.0-51.0); LYMPH % 19.4 % (9.0-44.0); LYMPHOCYTE # 1.9 TH/MM3 (1.0-4.8); MEAN CELL VOLUME 93.2 FL (80.0-100.0); MEAN CORPUSCULAR HEMOGLOBIN 31.9 PG (27.0-34.0); MEAN CORPUSCULAR HGB CONC 34.3 % (32.0-36.0); MONO % 5.1 % (0.0-8.0); NEUT % 74.4 % (16.0-70.0); PLATELET COUNT 268 TH/MM3 (150-450); RED BLOOD COUNT 5.17 MIL/MM3 (4.50-5.90); RED CELL DISTRIBUTION WIDTH 13.7 % (11.6-17.2); WHITE BLOOD COUNT 9.7 TH/MM3 (4.0-11.0)
--- NOTE | 2016-09-16 19:01 | RADHPO ---
EXAM DATE/TIME: 09/16/2016 18:46 [facility] COMPARISON: CT BRAIN W/O CONTRAST, September 24, 2015, 12:18. INDICATIONS : Headache. RADIATION DOSE: 58.30 CTDIvol (mGy) MEDICAL HISTORY : Hypertension. SURGICAL HISTORY : None. ENCOUNTER: Initial ACUITY: 1 day PAIN SCALE: 3/10 LOCATION: Right cranial TECHNIQUE: Multiple contiguous axial images were obtained of the head. Using automated exposure control and adj ustment of the mA and/or kV according to patient size, radiation dose was kept as low as reasonably a chievable to obtain optimal diagnostic quality images. FINDINGS: CEREBRUM: The ventricles are normal for age. No evidence of midline shift, mass lesion, hemorrhage or acute in farction. No extra-axial fluid collections are seen. POSTERIOR FOSSA: The cerebellum and brainstem are intact. The 4th ventricle is midline. The cerebellopontine angle i s unremarkable. EXTRACRANIAL: The visualized portion of the orbits is intact. SKULL: The calvaria is intact. No evidence of skull fracture. CONCLUSION: Negative noncontrast head CT. Eleazar Colin MD on September 16, 2016 at 18:59 Board Certified Radiologist. This report was verified electronically.
[2016-09-16 19:05] LABS: HEMO FLAGS DIFF FINAL
[2016-09-16 19:07] LABS: POTASSIUM 3.7 MEQ/L (3.5-5.1)
[2016-09-16 19:10] LABS: BICARBONATE 24.5 MEQ/L (21.0-32.0)
[2016-09-16] MEDS ORDERED: LISI-515 PO (19:16)
[2016-09-16 19:57] VITALS: BP 113/82
== END 2016-09-16 20:00 | disposition home or self-care (01) ==
LOC: PHED 18:12
DX: R51 Headache (principal); I10 Essential (primary) hypertension; Z72.0 Tobacco use; I25.10 Atherosclerotic heart disease of native coronary artery without angina pectoris
CPT/HCPCS: 70450; 80048; 85025; 96374; 96375; 99284; J0780; J1885

== ENCOUNTER 2017-09-03 14:10 | Emergency (ER) | payer SELFPAY ==
[2017-09-03] MEDS: KETOROLAC TROMETHAMINE 60 MG/2 ML (IM) VIAL IM (16:01)
[2017-09-03] MEDS: ORPHENADRINE INJ 60 MG/2 ML AMP IM (16:01)
== END 2017-09-03 17:25 | disposition home or self-care (01) ==
LOC: PHEFT 14:10
DX: S16.1XXA Strain of muscle, fascia and tendon at neck level, initial encounter (principal); M51.36 Other intervertebral disc degeneration, lumbar region; M50.30 Other cervical disc degeneration, unspecified cervical region; M19.90 Unspecified osteoarthritis, unspecified site; I10 Essential (primary) hypertension; I25.10 Atherosclerotic heart disease of native coronary artery without angina pectoris; W01.198A Fall on same level from slipping, tripping and stumbling with subsequent striking against other object, initial encounter; Z87.442 Personal history of urinary calculi; Z72.0 Tobacco use
CPT/HCPCS: 72100; 72125; 96372; 99284-25

== ENCOUNTER 2017-09-10 11:11 | Emergency (ER) | payer SELFPAY ==
[~2017-09-10 11:11] MED LIST changes: -ASPI81TA11 PO; +ASPI81TA23 PO; -CHLO25CA2 PO; +IBUP1TAB7 PO; +ROBA750T PO; -VITA100T2 PO
[2017-09-10 11:15] VITALS: BP 151/108; PULSE 68; RESP 16; O2SAT 98
[2017-09-10 11:37] VITALS: O2SAT 97
[2017-09-10] MEDS ORDERED: amLODIPine BESYLATE 5 MG TAB PO ONE (11:45)
[2017-09-10 11:53] LABS: AUTOMATED NEUTROPHIL # 3.6 TH/MM3 (1.8-7.7); BASOPHIL # 0.1 TH/MM3 (0-0.2); BASOPHIL % 0.9 % (0.0-2.0); EOSINOPHIL # 0.1 TH/MM3 (0-0.4); HEMATOCRIT 48.4 % (39.0-51.0); LYMPH % 31.1 % (9.0-44.0); LYMPHOCYTE # 1.9 TH/MM3 (1.0-4.8); MEAN CORPUSCULAR HEMOGLOBIN 30.8 PG (27.0-34.0); MEAN CORPUSCULAR HGB CONC 33.1 % (32.0-36.0); MEAN PLATELET VOLUME 8.6 FL (7.0-11.0); MONO % 7.2 % (0.0-8.0); MONOCYTE # 0.4 TH/MM3 (0-0.9); NEUT % 59.8 % (16.0-70.0); PLATELET COUNT 283 TH/MM3 (150-450); RED BLOOD COUNT 5.21 MIL/MM3 (4.50-5.90); RED CELL DISTRIBUTION WIDTH 13.1 % (11.6-17.2); WHITE BLOOD COUNT 6.1 TH/MM3 (4.0-11.0)
[2017-09-10 11:56] LABS: CHLORIDE 106 MEQ/L (98-107); SODIUM (NA) 140 MEQ/L (136-145)
[2017-09-10 11:58] LABS: BICARBONATE 27.7 MEQ/L (21.0-32.0); BLOOD UREA NITROGEN 13 MG/DL (7-18); CALCIUM 8.9 MG/DL (8.5-10.1); GLUCOSE,RANDOM 105 MG/DL (74-106)
--- NOTE | 2017-09-10 12:00 | RADRPT ---
EXAM DATE/TIME: 09/10/2017 11:38 [facility] COMPARISON: CHEST SINGLE AP, June 18, 2016, 12:28. INDICATIONS : Chest tightness. High blood pressure. MEDICAL HISTORY : Hypertension. SURGICAL HISTORY : None. ENCOUNTER: Initial ACUITY: 1 day PAIN SCORE: 2/10 LOCATION: Bilateral chest FINDINGS: A single view of the chest demonstrates the lungs to be symmetrically aerated without evidence of mas s, infiltrate or effusion. The cardiomediastinal contours are unremarkable. Osseous structures are intact. CONCLUSION: No acute cardiopulmonary process. Kahlil Lopez MD on September 10, 2017 at 11:56 Board Certified Radiologist. This report was verified electronically.
--- NOTE | 2017-09-10 12:01 | PD ---
HPI Chief Complaint: Chest Pain Time Seen by Provider: 11:35 Travel History International Travel<30 days: No Contact w/Intl Traveler<30days: No Traveled to known affect area: No History of Present Illness HPI This 79-year-old male presents with complaint that his blood pressure has been elevated. He has a cough and has been measuring at home at home. He is breathing positive persistently around 180/100. He has had hypertension for about 2 years. Review of chart shows several ER visits for treatment of high blood pressure. He does not have a primary care doctor. He is currently taking metoprolol. He has a bottle of 25 mg tablets. The bottle says to take half a tablet twice a day. He takes it on an as-needed basis. He says he took 2 full tablets today. He was admitted to the hospital in 2016. He has had some sharp right-sided chest pain last night which lasted 3 or 4 minutes. He does smoke cigarettes. He had a cardiac catheterization in May 2016 which showed nonobstructive coronary artery disease PFSH Past Medical History Arthritis: Yes Asthma: No Autoimmune Disease: No Heart Rhythm Problems: No Cardiac Catheterization: No Cardiovascular Problems: Yes (HTN) High Cholesterol: No Congestive Heart Failure: No COPD: No Coronary Artery Disease: Yes Diabetes: No Diminished Hearing: No Diverticulitis: Yes Headaches: Yes Heparin Induced Thrombocytopen: No Hypertension: Yes Kidney Stones: Yes Psychiatric: Yes (PTSD) Influenza Vaccination: Yes ?: Not Past Surgical History Abdominal Surgery: Yes (Meckel's diverticulum) Appendectomy: Yes Coronary Artery Bypass Graft: No Social History Alcohol Use: Yes (daily) Tobacco Use: Yes (1/2 ppd) Substance Use: No Allergies-Medications (Allergen,Severity, Reaction): Coded Allergies: penicillin G (Verified Allergy, Severe, Anaphylaxis, 09/10/17) Reported Meds & Prescriptions Reported Meds & Active Scripts Active Robaxin (Methocarbamol) 750 Mg Tab 750 Mg PO QID Ibuprofen 800 Mg Tab 800 Mg PO Q6HR PRN Protonix (Pantoprazole Sodium) 40 Mg Tab 40 Mg PO DAILY Metoprolol Tartrate 25 Mg Tab 12.5 Mg PO BID Lipitor (Atorvastatin Calcium) 10 Mg Tab 10 Mg PO HS Aspirin EC (Aspirin) 81 Mg Tabdr 81 Mg PO DAILY Reported Lisinopril 10 Mg Tab 10 Mg PO DAILY Amlodipine (Amlodipine Besylate) 5 Mg Tab 5 Mg PO DAILY Review of Systems General / Constitutional: No: Fever, Chills Eyes: No: Diploplia HENT: No: Headaches, Lightheadedness Cardiovascular: Positive: Chest Pain or Discomfort, No: Palpitations Respiratory: No: Cough, Shortness of Breath Gastrointestinal: No: Vomiting, Diarrhea Genitourinary: No: Urgency, Frequency Skin: No Rash Neurologic: No: Weakness Psychiatric: Positive: Anxiety Endocrine: No: Heat Intolerance Hematologic/Lymphatic: No: Easy Bruising Physical Exam Narrative GENERAL: Well-developed male SKIN: Focused skin assessment warm/dry. HEAD: Atraumatic. Normocephalic. EYES: Pupils equal and round. No scleral icterus. No injection or drainage. ENT: No nasal bleeding or discharge. Mucous membranes pink and moist. NECK: Trachea midline. No JVD. CARDIOVASCULAR: Regular rate and rhythm. No murmur appreciated. RESPIRATORY: No accessory muscle use. Clear to auscultation. Breath sounds equal bilaterally. GASTROINTESTINAL: Abdomen soft, non-tender, nondistended. Hepatic and splenic margins not palpable. MUSCULOSKELETAL: No obvious deformities. No clubbing. No cyanosis. No edema. NEUROLOGICAL: Awake and alert. No obvious cranial nerve deficits. Motor grossly within normal limits. Normal speech. PSYCHIATRIC: Anxious Data Data Last Documented VS Vital Signs Date Time Temp Pulse Resp B/P (MAP) Pulse Ox O2 Delivery O2 Flow Rate FiO2 09/10/17 11:42 68 97 Room Air 09/10/17 11:15 16 151/108 (122) Orders Orders Electrocardiogram (09/10/17 11:19) Complete Blood Count With Diff (09/10/17 11:19) Basic Metabolic Panel (Bmp) (09/10/17 11:19) Ckmb (Isoenzyme) Profile (09/10/17 11:19) Troponin I (09/10/17 11:19) Chest, Single Ap (09/10/17 11:19) Iv Access Insert/Monitor (09/10/17 11:19) Ecg Monitoring (09/10/17 11:19) Oxygen Administration (09/10/17 11:19) Oximetry (09/10/17 11:19) Act Partial Throm Time (Ptt) (09/10/17 11:19) Prothrombin Time / Inr (Pt) (09/10/17 11:19) Amlodipine (Norvasc) (09/10/17 11:45) Labs Laboratory Tests Test 09/10/17 11:30 White Blood Count 6.1 TH/MM3 Red Blood Count 5.21 MIL/MM3 Hemoglobin 16.0 GM/DL Hematocrit 48.4 % Mean Corpuscular Volume 93.0 FL Mean Corpuscular Hemoglobin 30.8 PG Mean Corpuscular Hemoglobin Concent 33.1 % Red Cell Distribution Width 13.1 % Platelet Count 283 TH/MM3 Mean Platelet Volume 8.6 FL Neutrophils (%) (Auto) 59.8 % Lymphocytes (%) (Auto) 31.1 % Monocytes (%) (Auto) 7.2 % Eosinophils (%) (Auto) 1.0 % Basophils (%) (Auto) 0.9 % Neutrophils # (Auto) 3.6 TH/MM3 Lymphocytes # (Auto) 1.9 TH/MM3 Monocytes # (Auto) 0.4 TH/MM3 Eosinophils # (Auto) 0.1 TH/MM3 Basophils # (Auto) 0.1 TH/MM3 CBC Comment DIFF FINAL Differential Comment Prothrombin Time 9.9 SEC Prothromb Time International Ratio 1.0 RATIO Activated Partial Thromboplast Time 27.2 SEC Blood Urea Nitrogen 13 MG/DL Creatinine 0.92 MG/DL Random Glucose 105 MG/DL Calcium Level 8.9 MG/DL Sodium Level 140 MEQ/L Potassium Level 3.6 MEQ/L Chloride Level 106 MEQ/L Carbon Dioxide Level 27.7 MEQ/L Anion Gap 6 MEQ/L Estimat Glomerular Filtration Rate 85 ML/MIN Total Creatine Kinase 62 U/L Troponin I LESS THAN 0.02 NG/ML MDM Medical Decision Making Medical Screen Exam Complete: Yes Emergency Medical Condition: Yes Medical Record Reviewed: Yes Differential Diagnosis Differential includes hypertension, anxiety, chest pain Narrative Course Chest pain workup is negative. His pain was only 3-4 minutes last night when he has had a cardiac cath on as negative enzymes now. He is stable for discharge. I will add Norvasc 5 mg to his blood pressure regimen. Also recommend that he follow-up with [facility] were is, in the past for treatment of anxiety Diagnosis Primary Impression: Hypertension Scripts Amlodipine (Norvasc) 5 Mg Tab 5 MG PO DAILY for Blood Pressure Management, #30 TAB 0 Refills Prov: Khari Lamb MD 09/10/17 Disposition: 01 DISCHARGE HOME Condition: Stable Khari Lamb MD September 10, 2017 12:01
[2017-09-10 12:02] LABS: CREATININE 0.92 MG/DL (0.60-1.30); GLOMERULAR FILTRATION RATE 85 ML/MIN (>89)
[2017-09-10 12:06] LABS: TROPONIN I LESS THAN 0.02 NG/ML (0.02-0.05)
[2017-09-10 12:07] LABS: PROTHROMBIN TIME - PATIENT 9.9 SEC (9.8-11.6)
[2017-09-10] MEDS ORDERED: AMLO5 PO (12:55)
[2017-09-10 13:32] VITALS: BP 112/79
--- NOTE | 2017-09-11 22:52 | EKG ---
Date Performed: 09/10/2017 Time Performed: 11:24:16 PTAGE: 57 years EKG: Sinus rhythm INCOMPLETE RIGHT BUNDLE BRANCH BLOCK BORDERLINE ECG PREVIOUS TRACING : 08/08/2016 22.05 Since the previous tracing, no significant change noted DOCTOR: Dago Xiong Interpretating Date/Time 09/11/2017 22:50:17
== END 2017-09-10 13:34 | disposition home or self-care (01) ==
LOC: PHED 11:11
DX: I10 Essential (primary) hypertension (principal); R94.31 Abnormal electrocardiogram [ECG] [EKG]; I25.10 Atherosclerotic heart disease of native coronary artery without angina pectoris; F43.10 Post-traumatic stress disorder, unspecified; M19.90 Unspecified osteoarthritis, unspecified site; F17.200 Nicotine dependence, unspecified, uncomplicated
CPT/HCPCS: 71045; 80048; 82550; 84484; 85025; 85610; 85730; 93005

== ENCOUNTER 2018-03-26 09:32 | Observation (INO) ==
[2018-03-26] MEDS ORDERED: Morphine Inj 4 MG/ML Vial IV.PUSH ONE ×2 (09:58→10:43)
--- NOTE | 2018-03-26 10:01 | ED ---
HPI General Chief Complaint: Chest Pain Stated Complaint: hypertension/chest pressure "seeing stars" Time Seen by Provider: 03/26/18 09:58 Source: patient Mode of arrival: ambulatory Limitations: no limitations History of Present Illness HPI narrative: Patient comes in complaining of a 2-day history of nearly passing out, associated dizziness lightheadedness along with palpitations and chest tightness. Patient does not have a paraffin machine operator or primary care physician. He describes the chest pressure as substernal has occurred at rest and with activity. No primary care No paraffin machine operator Current smoker MD complaint: Reports chest pain STEMI Alert: No Duration: intermittent Pain location: Reports substernal Quality: Reports tightness Pain radiation: Reports none Relieving factors: nothing Exacerbating factors: nothing Related Data Previous Rx's Medication Instructions Recorded aspirin 81 mg PO DAILY 30 Days #30 tab 03/27/18 hydrochlorothiazide 12.5 mg PO DAILY 30 Days #30 cap 03/27/18 lisinopril 10 mg PO DAILY 30 Days #30 tab 03/27/18 Allergies Allergy/AdvReac Type Severity Reaction Status Date / Time penicillin G Allergy Severe Anaphylaxis Verified 03/26/18 09:45 Review of Systems ROS: all other systems reviewed are negative [facility] Medical History Medical History History of diverticulitis (Acute) Hx of primary hypertension (Acute) Surgical History Surgical History History of colon surgery (Acute) Family History Family History Father Cardiovascular disease Social History Social History Substance History: No History of Abuse Second Hand Smoke Exposure: Yes Smoking Status: Current every day smoker Tobacco Type: Cigarettes How Often Do You Have a Drink Containing Alcohol: 4 or more times a week Recent Travel in [facility] within the Last 8 Weeks: No Recent Out of Country Travel within the Last 8 Weeks: No Immunization History Tetanus Immunization: Unsure Exam Narrative Exam Narrative: GENERAL: Well-nourished, well-developed patient in no apparent distress. SKIN: Warm and dry. HEAD: Atraumatic. Normocephalic. EYES: Pupils equal and round. No scleral icterus. No injection or drainage. ENT: No nasal bleeding or discharge. Mucous membranes pink and moist. NECK: Trachea midline. No JVD. CARDIOVASCULAR: Regular rate and rhythm. no rubs or gallops RESPIRATORY: No accessory muscle use. Clear to auscultation. Breath sounds equal bilaterally. GASTROINTESTINAL: Abdomen soft, non-tender, nondistended. No rebound or guarding MUSCULOSKELETAL: Extremities without clubbing, cyanosis, or edema. No obvious deformities. NEUROLOGICAL: Awake and alert. No obvious cranial nerve deficits. Motor grossly within normal limits. Five out of 5 muscle strength in the arms and legs. Normal speech. PSYCHIATRIC: Appropriate mood and affect; insight and judgment normal. Course Initial Documented Vital Signs Temperature 97.7 F 03/26/18 09:45 Pulse Rate 57 L 03/26/18 09:45 Respiratory Rate 16 03/26/18 09:45 Blood Pressure 176/114 H 03/26/18 09:45 Pulse Oximetry 99 03/26/18 09:45 Last Documented Vital Signs Temperature 97.3 F L 03/27/18 04:00 Pulse Rate 67 03/27/18 04:00 Respiratory Rate 20 03/27/18 04:19 Blood Pressure 109/62 03/27/18 04:00 Pulse Oximetry 94 L 03/27/18 07:42 Medical Decision Making MDM Narrative Medical Screen Exam Complete: Yes Emergency Medical Condition: Yes Medical Records Medical records reviewed: Yes I reviewed the patient's medical records. Upon chart review the following cardiac cath report was found dated May by Dr. Weiss: Right coronary artery is dominant giving off the PDA has minimal luminal irregularities throughout he has a 40% lesion proximally. Left main is short with nonobstructive coronary artery disease. LAD is transapical vessel has luminal irregularities is tortuous however the patient with nonobstructive coronary artery disease and DEVI III flow. The left circumflex has minimal irregularities with nonobstructive CAD. Conclusion nonobstructive coronary artery disease preserved left ventricular systolic function. And the recommendation is to continue aggressive medical management. Lab Data Result diagrams: 03/26/18 10:00 03/26/18 10:00 Lab Results 03/26/18 03/26/18 03/26/18 Range/Units 10:00 10:00 10:00 CBC w Diff Auto diff final WBC 6.8 (4.0-11.0) th/mm3 RBC 5.26 (4.50-5.90) mil/mm3 Hgb 16.9 (13.0-17.0) gm/dL Hct 50.3 (39.0-51.0) % MCV 95.6 (80.0-100.0) fL MCH 32.1 (27.0-34.0) pg MCHC 33.6 (32.0-36.0) % RDW 13.5 (11.6-17.2) % Plt Count 300 (150-450) th/mm3 MPV 9.6 (7.0-11.0) fL Neut % (Auto) 59.1 (16.0-70.0) % Lymph % (Auto) 31.4 (9.0-44.0) % Creek % (Auto) 7.2 (0.0-8.0) % Eos % (Auto) 1.3 (0.0-4.0) % Baso % (Auto) 1.0 (0.0-2.0) % Neut # (Auto) 4.0 (1.8-7.7) th/mm3 Lymph # (Auto) 2.1 (1.0-4.8) th/mm3 [place] # (Auto) 0.5 (0.0-0.9) th/mm3 Eos # (Auto) 0.1 (0.0-0.4) th/mm3 Baso # (Auto) 0.1 (0.0-0.2) th/mm3 WBC Differential . Differential Comment . PT (9.8-11.6) sec INR Ratio APTT (23.4-31.7) sec Sodium (136-145) meq/L Potassium (3.5-5.1) meq/L Chloride (98-107) meq/L Carbon Dioxide (21.0-32.0) meq/L Anion Gap (5-15) meq/L BUN (7-18) mg/dL Creatinine (0.60-1.30) mg/dL Estimated GFR (>89) mL/min Random Glucose (74-106) mg/dL Calcium (8.5-10.1) mg/dL Total Bilirubin (0.2-1.0) mg/dL AST (15-37) U/L ALT (12-78) U/L Alkaline Phosphatase (45-117) U/L Total Creatine Kinase (39-308) U/L Troponin I (0.02-0.05) ng/mL B-Natriuretic Peptide 21 (0-100) pg/mL Total Protein (6.4-8.2) g/dL Albumin (3.4-5.0) g/dL Triglycerides (42-150) mg/dL Cholesterol (120-200) mg/dL LDL Cholesterol, Calc (0-99) mg/dL HDL Cholesterol (40.0-60.0) mg/dL Cholesterol/HDL Ratio Ratio Lipase 854 H (73-393) U/L Ur Collection Type Urine Color (Yellw/Straw) Urine Clarity (Clear) Urine pH (5.0-8.5) Ur Specific [place] (1.002-1.035) Urine Protein (Neg-Trace) mg/dL Urine Glucose (UA) (Negative) mg/dL Urine Ketones (Negative) mg/dL Urine Occult Blood (Negative) Urine Nitrate (Negative) Urine Bilirubin (Negative) Urine Urobilinogen (Less than 2) mg/dL Ur Leukocyte Esterase (Negative) Urine RBC (0-3) /hpf Ur Squamous Epith Cells (0-5) /hpf Micro UA Comment Ur Microscopic Review Urine Culture Comments Urine Opiates Screen (Neg) Ur Barbiturates Screen (Neg) Ur Amphetamines Screen (Neg) U Benzodiazepines Scrn (Neg) Urine Cocaine Screen (Neg) U Cannabinoids Screen (Neg) 03/26/18 03/26/18 03/26/18 Range/Units 10:00 10:00 11:40 CBC w Diff WBC (4.0-11.0) th/mm3 RBC (4.50-5.90) mil/mm3 Hgb (13.0-17.0) gm/dL Hct (39.0-51.0) % MCV (80.0-100.0) fL MCH (27.0-34.0) pg MCHC (32.0-36.0) % RDW (11.6-17.2) % Plt Count (150-450) th/mm3 MPV (7.0-11.0) fL Neut % (Auto) (16.0-70.0) % Lymph % (Auto) (9.0-44.0) % Creek % (Auto) (0.0-8.0) % Eos % (Auto) (0.0-4.0) % Baso % (Auto) (0.0-2.0) % Neut # (Auto) (1.8-7.7) th/mm3 Lymph # (Auto) (1.0-4.8) th/mm3 Creek # (Auto) (0.0-0.9) th/mm3 Eos # (Auto) (0.0-0.4) th/mm3 Baso # (Auto) (0.0-0.2) th/mm3 WBC Differential Differential Comment PT 9.7 L (9.8-11.6) sec INR 1.0 Ratio APTT 29.1 (23.4-31.7) sec Sodium 141 (136-145) meq/L Potassium 3.9 (3.5-5.1) meq/L Chloride 107 (98-107) meq/L Carbon Dioxide 26.3 (21.0-32.0) meq/L Anion Gap 8 (5-15) meq/L BUN 10 (7-18) mg/dL Creatinine 1.10 (0.60-1.30) mg/dL Estimated GFR 69 L (>89) mL/min Random Glucose 100 (74-106) mg/dL Calcium 8.3 L (8.5-10.1) mg/dL Total Bilirubin 0.6 (0.2-1.0) mg/dL AST 20 (15-37) U/L ALT 36 (12-78) U/L Alkaline Phosphatase 69 (45-117) U/L Total Creatine Kinase 65 (39-308) U/L Troponin I Less than 0.02 L (0.02-0.05) ng/mL B-Natriuretic Peptide (0-100) pg/mL Total Protein 7.4 (6.4-8.2) g/dL Albumin 3.7 (3.4-5.0) g/dL Triglycerides (42-150) mg/dL Cholesterol (120-200) mg/dL LDL Cholesterol, Calc (0-99) mg/dL HDL Cholesterol (40.0-60.0) mg/dL Cholesterol/HDL Ratio Ratio Lipase (73-393) U/L Ur Collection Type Urine Color (Yellw/Straw) Urine Clarity (Clear) Urine pH (5.0-8.5) Ur Specific [place] (1.002-1.035) Urine Protein (Neg-Trace) mg/dL Urine Glucose (UA) (Negative) mg/dL Urine Ketones (Negative) mg/dL Urine Occult Blood (Negative) Urine Nitrate (Negative) Urine Bilirubin (Negative) Urine Urobilinogen (Less than 2) mg/dL Ur Leukocyte Esterase (Negative) Urine RBC (0-3) /hpf Ur Squamous Epith Cells (0-5) /hpf Micro UA Comment Ur Microscopic Review Urine Culture Comments Urine Opiates Screen Neg (Neg) Ur Barbiturates Screen Neg (Neg) Ur Amphetamines Screen Neg (Neg) U Benzodiazepines Scrn Neg (Neg) Urine Cocaine Screen Neg (Neg) U Cannabinoids Screen Neg (Neg) 03/26/18 03/26/18 03/26/18 Range/Units 11:40 13:50 16:30 CBC w Diff WBC (4.0-11.0) th/mm3 RBC (4.50-5.90) mil/mm3 Hgb (13.0-17.0) gm/dL Hct (39.0-51.0) % MCV (80.0-100.0) fL MCH (27.0-34.0) pg MCHC (32.0-36.0) % RDW (11.6-17.2) % Plt Count (150-450) th/mm3 MPV (7.0-11.0) fL Neut % (Auto) (16.0-70.0) % Lymph % (Auto) (9.0-44.0) % Creek % (Auto) (0.0-8.0) % Eos % (Auto) (0.0-4.0) % Baso % (Auto) (0.0-2.0) % Neut # (Auto) (1.8-7.7) th/mm3 Lymph # (Auto) (1.0-4.8) th/mm3 [place] # (Auto) (0.0-0.9) th/mm3 Eos # (Auto) (0.0-0.4) th/mm3 Baso # (Auto) (0.0-0.2) th/mm3 WBC Differential Differential Comment PT (9.8-11.6) sec INR Ratio APTT (23.4-31.7) sec Sodium (136-145) meq/L Potassium (3.5-5.1) meq/L Chloride (98-107) meq/L Carbon Dioxide (21.0-32.0) meq/L Anion Gap (5-15) meq/L BUN (7-18) mg/dL Creatinine (0.60-1.30) mg/dL Estimated GFR (>89) mL/min Random Glucose (74-106) mg/dL Calcium (8.5-10.1) mg/dL Total Bilirubin (0.2-1.0) mg/dL AST (15-37) U/L ALT (12-78) U/L Alkaline Phosphatase (45-117) U/L Total Creatine Kinase 43 43 (39-308) U/L Troponin I Less than 0.02 L Less than 0.02 L (0.02-0.05) ng/mL B-Natriuretic Peptide (0-100) pg/mL Total Protein (6.4-8.2) g/dL Albumin (3.4-5.0) g/dL Triglycerides 99 (42-150) mg/dL Cholesterol 180 (120-200) mg/dL LDL Cholesterol, Calc 100 H (0-99) mg/dL HDL Cholesterol 60.3 H (40.0-60.0) mg/dL Cholesterol/HDL Ratio 2.98 Ratio Lipase (73-393) U/L Ur Collection Type Clean catch Urine Color Yellow (Yellw/Straw) Urine Clarity Clear (Clear) Urine pH 7.0 (5.0-8.5) Ur Specific [place] 1.010 (1.002-1.035) Urine Protein Negative (Neg-Trace) mg/dL Urine Glucose (UA) Negative (Negative) mg/dL Urine Ketones Negative (Negative) mg/dL Urine Occult Blood Negative (Negative) Urine Nitrate Negative (Negative) Urine Bilirubin Negative (Negative) Urine Urobilinogen 0.2 (Less than 2) mg/dL Ur Leukocyte Esterase Negative (Negative) Urine RBC 0-3 (0-3) /hpf Ur Squamous Epith Cells 0-5 (0-5) /hpf Micro UA Comment Culture not ind Ur Microscopic Review Microscopic reviewed Urine Culture Comments Culture not ind Urine Opiates Screen (Neg) Ur Barbiturates Screen (Neg) Ur Amphetamines Screen (Neg) U Benzodiazepines Scrn (Neg) Urine Cocaine Screen (Neg) U Cannabinoids Screen (Neg) 03/27/18 Range/Units 07:05 CBC w Diff WBC (4.0-11.0) th/mm3 RBC (4.50-5.90) mil/mm3 Hgb (13.0-17.0) gm/dL Hct (39.0-51.0) % MCV (80.0-100.0) fL MCH (27.0-34.0) pg MCHC (32.0-36.0) % RDW (11.6-17.2) % Plt Count (150-450) th/mm3 MPV (7.0-11.0) fL Neut % (Auto) (16.0-70.0) % Lymph % (Auto) (9.0-44.0) % [place] % (Auto) (0.0-8.0) % Eos % (Auto) (0.0-4.0) % Baso % (Auto) (0.0-2.0) % Neut # (Auto) (1.8-7.7) th/mm3 Lymph # (Auto) (1.0-4.8) th/mm3 [place] # (Auto) (0.0-0.9) th/mm3 Eos # (Auto) (0.0-0.4) th/mm3 Baso # (Auto) (0.0-0.2) th/mm3 WBC Differential Differential Comment PT (9.8-11.6) sec INR Ratio APTT (23.4-31.7) sec Sodium (136-145) meq/L Potassium (3.5-5.1) meq/L Chloride (98-107) meq/L Carbon Dioxide (21.0-32.0) meq/L Anion Gap (5-15) meq/L BUN (7-18) mg/dL Creatinine (0.60-1.30) mg/dL Estimated GFR (>89) mL/min Random Glucose (74-106) mg/dL Calcium (8.5-10.1) mg/dL Total Bilirubin (0.2-1.0) mg/dL AST (15-37) U/L ALT (12-78) U/L Alkaline Phosphatase (45-117) U/L Total Creatine Kinase (39-308) U/L Troponin I (0.02-0.05) ng/mL B-Natriuretic Peptide (0-100) pg/mL Total Protein (6.4-8.2) g/dL Albumin (3.4-5.0) g/dL Triglycerides (42-150) mg/dL Cholesterol (120-200) mg/dL LDL Cholesterol, Calc (0-99) mg/dL HDL Cholesterol (40.0-60.0) mg/dL Cholesterol/HDL Ratio Ratio Lipase 288 (73-393) U/L Ur Collection Type Urine Color (Yellw/Straw) Urine Clarity (Clear) Urine pH (5.0-8.5) Ur Specific [place] (1.002-1.035) Urine Protein (Neg-Trace) mg/dL Urine Glucose (UA) (Negative) mg/dL Urine Ketones (Negative) mg/dL Urine Occult Blood (Negative) Urine Nitrate (Negative) Urine Bilirubin (Negative) Urine Urobilinogen (Less than 2) mg/dL Ur Leukocyte Esterase (Negative) Urine RBC (0-3) /hpf Ur Squamous Epith Cells (0-5) /hpf Micro UA Comment Ur Microscopic Review Urine Culture Comments Urine Opiates Screen (Neg) Ur Barbiturates Screen (Neg) Ur Amphetamines Screen (Neg) U Benzodiazepines Scrn (Neg) Urine Cocaine Screen (Neg) U Cannabinoids Screen (Neg) Imaging Data Radiologist's impression: Carotid Doppler Study 03/26/18 00:00 CONCLUSION: Mild bilateral common carotid and proximal ICA atherosclerotic plaque without significant luminal narrowing. Antegrade flow involving both vertebral arteries. Chest X-Ray 03/26/18 09:59 CONCLUSION: Negative examination. Head CT 03/26/18 10:43 CONCLUSION: Negative CT Head non contrast. . Myocardial Perfusion Scan Nuc Med 03/27/18 00:00 CONCLUSION: Negative examination. ECG Data EKG Prior to Arrival: No Attestation: I personally reviewed and interpreted this ECG as follows: Prior ECG tracings: not available for review Interpretation: Sinus bradycardia 59 bpm, left atrial enlargement, incomplete right bundle branch block pattern, baseline motion artifact, no major significant ST elevation noted, some nonspecific ST-T wave changes Discharge Plan Discharge Disposition Patient Disposition: 30 Still Patient Discharge Condition Condition: Stable Discharge Order Discharge Orders: Discharge Order (Routine); Ordered 03/27/18 Ordered By: Sherita Hwang Discharge Details Anticipated Discharge Date: 03/27/18 Diagnosis: Vasovagal near-syncope, Atypical chest pain Physicians Team ED Provider: Lightburn,Delgado E Primary Care Provider: Primary Care Huyen Rothman Attending Provider: Flako Souza Discharge Interventions Interventions: ED Discharge Assessment Last Done: 03/26/18 11:59 Status ED Status: Left Department Discharge Information Discharge Date/Time: 03/26/18 12:14
--- NOTE | 2018-03-26 10:15 | XR ---
EXAM DATE: 03/26/2018 10:12 AM EST AGE/SEX: 57 years / Male INDICATIONS: Chest pain. CLINICAL DATA: This is the patient's initial encounter. Patient reports that signs and symptoms have been present for 1 day and indicates a pain score of 5/10. MEDICAL/SURGICAL HISTORY: Hypertension. None. COMPARISON: [facility], CHEST SINGLE AP, 09/10/2017. . FINDINGS: A single AP view of the chest demonstrates the lungs to be symmetrically aerated without evidence of mass, infiltrate or effusion. The cardiomediastinal contours are unremarkable. Osseous structures a re intact. CONCLUSION: Negative examination. Electronically signed by: Gustavo Ortega MD 03/26/2018 10:14 AM EST
[2018-03-26 10:34] LABS: Chloride 107 meq/L (98-107); Potassium 3.9 meq/L (3.5-5.1); Sodium 141 meq/L (136-145)
[2018-03-26 10:37] LABS: Calcium 8.3 mg/dL (8.5-10.1)
[2018-03-26 10:38] LABS: Albumin 3.7 g/dL (3.4-5.0); Anion Gap 8 meq/L (5-15); Blood Urea Nitrogen 10 mg/dL (7-18); Carbon Dioxide 26.3 meq/L (21.0-32.0); Glucose,Random 100 mg/dL (74-106)
[2018-03-26 10:39] LABS: Baso # (Auto) 0.1 th/mm3 (0.0-0.2); Eos # (Auto) 0.1 th/mm3 (0.0-0.4); Eos % (Auto) 1.3 % (0.0-4.0); Hematocrit 50.3 % (39.0-51.0); Hemoglobin 16.9 gm/dL (13.0-17.0); Lymph # (Auto) 2.1 th/mm3 (1.0-4.8); Lymph % (Auto) 31.4 % (9.0-44.0); Mean Corpuscular HGB Conc 33.6 % (32.0-36.0); Mean Corpuscular Hemoglobin 32.1 pg (27.0-34.0); Mean Corpuscular Volume 95.6 fL (80.0-100.0); Mean Platelet Volume 9.6 fL (7.0-11.0); Mono # (Auto) 0.5 th/mm3 (0.0-0.9); Mono % (Auto) 7.2 % (0.0-8.0); Neut % (Auto) 59.1 % (16.0-70.0); Platelet Count 300 th/mm3 (150-450); Red Blood Count 5.26 mil/mm3 (4.50-5.90); Red Cell Distribution Width 13.5 % (11.6-17.2); White Blood Count 6.8 th/mm3 (4.0-11.0)
[2018-03-26 10:40] LABS: Activated Partial Thrombo Time 29.1 sec (23.4-31.7); Prothrombin Time 9.7 sec (9.8-11.6)
[2018-03-26 10:41] LABS: Alanine Aminotransferase 36 U/L (12-78); Aspartate Aminotransferase 20 U/L (15-37); Glomerular Filtration Rate 69 mL/min (>89)
[2018-03-26 10:43] LABS: Total Protein 7.4 g/dL (6.4-8.2)
[2018-03-26 10:44] LABS: Alkaline Phosphatase 69 U/L (45-117)
[2018-03-26 10:50] LABS: Creatine Kinase 65 U/L (39-308)
--- NOTE | 2018-03-26 11:08 | CT ---
EXAM DATE: 03/26/2018 11:04 AM EST AGE/SEX: 57 years / Male INDICATIONS: Dizziness and lightheaded x 2 days. CLINICAL DATA: This is the patient's initial encounter. Patient reports that signs and symptoms have been present for 2 days and indicates a pain score of 0/10. MEDICAL/SURGICAL HISTORY: Diverticulitis. Hypertension. Colon resection. RADIATION DOSE: 57.56 CTDI (mGy) COMPARISON: [facility], CT BRAIN W/O CONTRAST, 09/16/2016. . TECHNIQUE: CT of the head without contrast. Using automated exposure control and adjustment of the mA and/or kV according to patient size, radiation dose was kept as low as reasonably achievable to ob tain optimal diagnostic quality images. DICOM format image data is available electronically for revi ew and comparison. FINDINGS: Cerebrum: The ventricles are normal for age. No evidence of midline shift, mass lesion, hemorrhage or acute infarction. No extraaxial fluid collections are seen. Posterior Fossa: The cerebellum and brainstem are intact. The 4th ventricle is midline. The cerebe llopontine angle is unremarkable. Extracranial: The visualized portion of the orbits is intact. Skull: The calvaria is intact. No evidence of skull fracture. CONCLUSION: Negative CT Head non contrast. . Electronically signed by: Eleazar Desai MD 03/26/2018 11:07 AM EST
[2018-03-26 11:53] LABS: Bilirubin,Urine Negative (Negative); Clarity,Urine Clear (Clear); Glucose,Urine (UA) Negative (Negative); Leukocyte Esterase,Urine Negative (Negative); Nitrite,Urine Negative (Negative); Urobilinogen,Urine 0.2 mg/dL (Less than 2)
[2018-03-26 11:55] LABS: Color,Urine Yellow (Yellw/Straw)
[2018-03-26 11:58] LABS: RBC,Urine 0-3 /hpf (0-3); Squamous Epithelial Cell,Urine 0-5 /hpf (0-5)
[2018-03-26 12:00] LABS: Amphetamine Screen,Urine Neg (Neg); Barbiturate Screen,Urine Neg (Neg); Cannabinoid Screen,Urine Neg (Neg)
[2018-03-26 12:01] LABS: Cocaine Screen,Urine Neg (Neg); Opiate Screen,Urine Neg (Neg)
--- NOTE | 2018-03-26 13:46 | P.HP ---
History of Present Illness Primary Care Physician: No Primary Care Physician Chief Complaint: Chest pain History of Present Illness: This is a 57-year-old male patient with a known medical history of hypertension and CAD with history of WI who presented to ED with complaints of dizziness, lightheadedness as well as palpitations and chest pain. Patient states that the symptoms have been ongoing for the past 2 days, he states that he checks his blood pressure at home which has been consistently elevated for the past month or so with systolic in the 180s as well as diastolic in the 110's. Patient states that this morning he felt dizzy as well as saw stars, states he took his blood pressure and it was 180/117, he states that he also had associated chest pain that was midsternal radiated to his right and bandlike in nature, was characteristically aching and rated an 8 out of 10 at its worst on pain scale, admits to associated shortness of breath and nausea, denies any sweating or actual vomiting. Patient denies any recent illness include fever, chills, cough, headache, abdominal pain, nausea, vomiting, diarrhea or dysuria. He does admit to a tobacco abuse history, currently smokes pack a day since his teens. He does admit to drinking 4 beers a day. 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 He states that his last stress test was over 5 years ago which was reportedly unremarkable. After review of records it should be noted the patient presents usually yearly since 2015 with above complaints. He underwent a stress test in 2015 as well as 2016 which were reportedly unremarkable. In 2017 he also presented to the hospital with non-STEMI and he underwent a cardiac cath, report has been reviewed showing the RCA with 40% lesion with preserved left ventricular function. At that time he was medically managed with no stent intervention. Patient states that he has not seen a doctor since and all he has been taking is Amlodipine. He is noncompliant and appears to be uneducated on his CAD and hypertensive diagnosis. - Diagnosis (1) Chest pain (2) Hypertension Review of Systems All other systems reviewed negative except as stated in [facility] - History History Provided By: Patient - Medical History Medical History: Medical History (Last Reviewed 03/26/18 @ 15:43 by Sherita Hwang) History of diverticulitis Hx of primary hypertension - Surgical History Surgical History: Surgical History (Last Reviewed 03/26/18 @ 15:43 by Sherita Hwang) History of colon surgery - Family History Family History: Family History (Last Updated 03/26/18 @ 15:43 by Sherita Hwang) Father Cardiovascular disease - Social History I have reviewed the patient's Social History: Yes - Tobacco History Second Hand Smoke Exposure: Yes Tobacco Use In Past 30 Days: Yes Smoking Status: Current every day smoker Tobacco Type: Cigarettes - Alcohol History How Often Do You Have a Drink Containing Alcohol: 4 or more times a week - Substance Use History Substance History: No History of Abuse - Travel History Recent Travel in the [place] Within the Last 8 Weeks: No Recent Travel Out of the Country Within the Last 8 Weeks: No - Immunization History Tetanus Immunization: Unsure Medications and Allergies Active Medications: Active Medications Amlodipine Besylate (Norvasc) 10 mg PO DAILY LUIS F Aspirin (Aspirin Chew) 81 mg PO DAILY LUIS F Clonidine HCl (Catapres) 0.1 mg PO Q6H PRN PRN Reason: SYS BP GREATER THAN 160 MMHG Nitroglycerin (Nitrostat Sl) 0.4 mg SL Q5M PRN PRN Reason: CHEST PAIN Sodium Chloride (Ns Flush) 2 ml IV.FLUSH BID LUIS F Sodium Chloride (Ns Flush) 2 ml IV.FLUSH PRN PRN PRN Reason: FLUSH AFTER USING IV ACCESS Allergies Allergy/AdvReac Type Severity Reaction Status Date / Time penicillin G Allergy Severe Anaphylaxis Verified 03/26/18 09:45 Home Medications Medication Instructions Recorded Confirmed Type amlodipine 10 mg PO DAILY 03/26/18 03/26/18 History Exam Vital signs: Vital Signs 03/26/18 09:45 03/26/18 09:59 03/26/18 10:30 Temperature 97.7 F Pulse Rate 57 L 52 L Respiratory Rate 16 16 Blood Pressure 176/114 H 168/99 H Pulse Oximetry 99 99 98 03/26/18 11:58 03/26/18 12:35 Temperature 96.3 F L Pulse Rate 54 L 54 L Respiratory Rate 16 18 Blood Pressure 154/103 H 153/114 H Pulse Oximetry 98 Intake & Output 03/25/18 03/26/18 03/26/18 18:59 06:59 18:59 Weight 80.6 kg Other: Date of Last Bowel Movement 03/26/18 Weight On Admission 80.6 kg - Constitutional no acute distress Comments: On supplemental O2. NAD. - Routine HEENT Exam Head: Present: normocephalic Eye: Present: EOMI, PERRL - Routine Neck Exam Present: supple - Routine Respiratory Exam Present: accessory muscle use - Routine Cardiovascular Exam Present: RRR Comments: No chest pain to palpation. - Routine Abdominal Exam Present: soft - Routine Skin Exam Present: intact - Routine Neurological Exam Present: alert, oriented X3 Results - Labs CBC & Chem 7: 03/26/18 10:00 03/26/18 10:00 Labs: Laboratory Results - last 24 hr 03/26/18 03/26/18 03/26/18 10:00 10:00 10:00 CBC w Diff Auto diff final WBC 6.8 RBC 5.26 Hgb 16.9 Hct 50.3 MCV 95.6 MCH 32.1 MCHC 33.6 RDW 13.5 Plt Count 300 MPV 9.6 Neut % (Auto) 59.1 Lymph % (Auto) 31.4 [place] % (Auto) 7.2 Eos % (Auto) 1.3 Baso % (Auto) 1.0 Neut # (Auto) 4.0 Lymph # (Auto) 2.1 [place] # (Auto) 0.5 Eos # (Auto) 0.1 Baso # (Auto) 0.1 WBC Differential . Differential Comment . PT INR APTT Sodium Potassium Chloride Carbon Dioxide Anion Gap BUN Creatinine Estimated GFR Random Glucose Calcium Total Bilirubin AST ALT Alkaline Phosphatase Total Creatine Kinase Troponin I B-Natriuretic Peptide 21 Total Protein Albumin Lipase 854 H Ur Collection Type Urine Color Urine Clarity Urine pH Ur Specific [place] Urine Protein Urine Glucose (UA) Urine Ketones Urine Occult Blood Urine Nitrate Urine Bilirubin Urine Urobilinogen Ur Leukocyte Esterase Urine RBC Ur Squamous Epith Cells Micro UA Comment Ur Microscopic Review Urine Culture Comments Urine Opiates Screen Ur Barbiturates Screen Ur Amphetamines Screen U Benzodiazepines Scrn Urine Cocaine Screen U Cannabinoids Screen 03/26/18 03/26/18 03/26/18 10:00 10:00 11:40 CBC w Diff WBC RBC Hgb Hct MCV MCH MCHC RDW Plt Count MPV Neut % (Auto) Lymph % (Auto) [place] % (Auto) Eos % (Auto) Baso % (Auto) Neut # (Auto) Lymph # (Auto) [place] # (Auto) Eos # (Auto) Baso # (Auto) WBC Differential Differential Comment PT 9.7 L INR 1.0 APTT 29.1 Sodium 141 Potassium 3.9 Chloride 107 Carbon Dioxide 26.3 Anion Gap 8 BUN 10 Creatinine 1.10 Estimated GFR 69 L Random Glucose 100 Calcium 8.3 L Total Bilirubin 0.6 AST 20 ALT 36 Alkaline Phosphatase 69 Total Creatine Kinase 65 Troponin I Less than 0.02 L B-Natriuretic Peptide Total Protein 7.4 Albumin 3.7 Lipase Ur Collection Type Urine Color Urine Clarity Urine pH Ur Specific [place] Urine Protein Urine Glucose (UA) Urine Ketones Urine Occult Blood Urine Nitrate Urine Bilirubin Urine Urobilinogen Ur Leukocyte Esterase Urine RBC Ur Squamous Epith Cells Micro UA Comment Ur Microscopic Review Urine Culture Comments Urine Opiates Screen Neg Ur Barbiturates Screen Neg Ur Amphetamines Screen Neg U Benzodiazepines Scrn Neg Urine Cocaine Screen Neg U Cannabinoids Screen Neg 03/26/18 11:40 CBC w Diff WBC RBC Hgb Hct MCV MCH MCHC RDW Plt Count MPV Neut % (Auto) Lymph % (Auto) [place] % (Auto) Eos % (Auto) Baso % (Auto) Neut # (Auto) Lymph # (Auto) [place] # (Auto) Eos # (Auto) Baso # (Auto) WBC Differential Differential Comment PT INR APTT Sodium Potassium Chloride Carbon Dioxide Anion Gap BUN Creatinine Estimated GFR Random Glucose Calcium Total Bilirubin AST ALT Alkaline Phosphatase Total Creatine Kinase Troponin I B-Natriuretic Peptide Total Protein Albumin Lipase Ur Collection Type Clean catch Urine Color Yellow Urine Clarity Clear Urine pH 7.0 Ur Specific [place] 1.010 Urine Protein Negative Urine Glucose (UA) Negative Urine Ketones Negative Urine Occult Blood Negative Urine Nitrate Negative Urine Bilirubin Negative Urine Urobilinogen 0.2 Ur Leukocyte Esterase Negative Urine RBC 0-3 Ur Squamous Epith Cells 0-5 Micro UA Comment Culture not ind Ur Microscopic Review Microscopic reviewed Urine Culture Comments Culture not ind Urine Opiates Screen Ur Barbiturates Screen Ur Amphetamines Screen U Benzodiazepines Scrn Urine Cocaine Screen U Cannabinoids Screen - Imaging Impressions Chest X-Ray 03/26/18 09:59 CONCLUSION: Negative examination. Head CT 03/26/18 10:43 CONCLUSION: Negative CT Head non contrast. . Caprini VTE Risk Assessment Caprini VTE Risk Assessment: No/Low Risk (score <= 1) Caprini Risk Assessment Model: Point Value = 1 Point Value = 2 Point Value = 3 Point Value = 5 Age 41-60 Minor surgery BMI > 25 kg/m2 Swollen legs Varicose veins or History of unexplained or recurrent spontaneous Oral contraceptives or hormone replacement Sepsis (< 1 month) Serious lung disease, including pneumonia (< 1 month) Abnormal pulmonary function Acute myocardial infarction Congestive heart failure (< 1 month) History of inflammatory bowel disease Medical patient at bed rest Age 61-74 Arthroscopic surgery Major open surgery (> 45 min) Laparoscopic surgery (> 45 min) Malignancy Confined to bed (> 72 hours) Immobilizing plaster cast Central venous access Age >= 75 History of VTE Family history of VTE Factor V Leiden Prothrombin [id number] Lupus anticoagulant Anticardiolipin antibodies Elevated serum homocysteine Heparin-induced thrombocytopenia Other congenital or acquired thrombophilia Stroke (< 1 month) Elective arthroplasty Hip, pelvis, or leg fracture Acute spinal cord injury (< 1 month) Prophylaxis Regimen: Total Risk Factor Score Risk Level Prophylaxis Regimen 0-1 Low Early ambulation 2 Moderate Order ONE of the following: *Sequential Compression Device (SCD) *Heparin 5000 units SQ BID 3-4 Higher Order ONE of the following medications: *Heparin 5000 units SQ TID *Enoxaparin/Lovenox 40 mg SQ daily (WT < 150 kg, CrCl > 30 mL/min) *Enoxaparin/Lovenox 30 mg SQ daily (WT < 150 kg, CrCl > 10-29 mL/min) *Enoxaparin/Lovenox 30 mg SQ BID (WT < 150 kg, CrCl > 30 mL/min) AND/OR *Sequential Compression Device (SCD) 5 or more Highest Order ONE of the following medications: *Heparin 5000 units SQ TID (Preferred with Epidurals) *Enoxaparin/Lovenox 40 mg SQ daily (WT < 150 kg, CrCl > 30 mL/min) *Enoxaparin/Lovenox 30 mg SQ daily (WT < 150 kg, CrCl > 10-29 mL/min) *Enoxaparin/Lovenox 30 mg SQ BID (WT < 150 kg, CrCl > 30 mL/min) AND *Sequential Compression Device (SCD) Assessment and Plan - Assessment (1) Chest pain Code(s): R07.9 - Chest pain, unspecified Status: Acute (2) Hypertension Code(s): I10 - Essential (primary) hypertension Status: Acute - Plan This is a 57-year-old male patient who presented to the ED with: Chest pain History of CAD with WI -Patient presented with dizziness, lightheadedness and chest pain, these are similar complaints when he had his WI in the past. -Serial EKGs and serial troponins have been ordered for ruling out ACS purposes. Initial 2 troponins flat. Continue to monitor trends. -Continue on cardiac telemetry, monitor for any arrhythmias. EKG reviewed showing sinus bradycardia, controlled rate, right bundle kwame noted. No ST changes to indicate any ischemia. -CBC and BMP reviewed, essentially unremarkable. -Add lipid panel to labs and follow. -Morphine IV available for pain as needed. Continue on daily aspirin. Nitroglycerin also available. -If ACS ruled out with serial troponins and serial EKGs patient will likely undergo a cardiac Lexiscan in a.m. to further rule out any ischemia. -Patient is stable at this time and agreeable to plan. -Further hospitalization and treatment plan will depend on nuclear imaging results and cardiac workup. Hypertension, uncontrolled -Systolic in the 180's, diastolic in the 120's. BNP normal. -Clonidine as needed for blood pressure control. -Added lisinopril/HCTZ to regimen, will be more appropriate for patient. Does complain of leg swelling at home. Non present on exam. DC amlodipine from home. -Check Echocardiogram and follow. -Continue to monitor BP trends. Elevated lipase -854 on presentation. -Patient states he drinks roughly 4 beers per day. No history of abuse. No history of withdrawals. Advised to decrease to less than two per day. -LFTs WNL. Will repeat level in am. -Completely asymptomatic. No abdominal pain. Tobacco abuse: Nicotine patch. Encouraged cessation. Patient states he wants to quit. DVT Prophylaxis: SCDs.
--- NOTE | 2018-03-26 13:54 | US ---
EXAM DATE: 03/26/2018 1:33 PM EST AGE/SEX: 57 years / Male INDICATIONS: Syncope. CLINICAL DATA: This is the patient's initial encounter. Patient reports that signs and symptoms have been present for 1 day and indicates a pain score of 0/10. MEDICAL/SURGICAL HISTORY: . Diverticulitis. Hypertension. . Colon surgery. COMPARISON: No prior exams available for comparison. VELOCITY PARAMETERS: ICA/CCA Ratio: Right 1.2 , Left 0.9 ICA: Right 71 cm/sec, Left 53 cm/sec CCA: Right 57 cm/sec, Left 60 cm/sec ECA: Right 88 cm/sec, Left 82 cm/sec Vertebral: Right 32 cm/sec antegrade, Left 48 cm/sec antegrade FINDINGS: Right Carotid: Mild arteriosclerotic plaque is visualized.The waveforms are within normal limits. Left Carotid: Mild arteriosclerotic plaque is visualized. The waveforms are within normal limits. Other: None. CONCLUSION: Mild bilateral common carotid and proximal ICA atherosclerotic plaque without significant luminal arcadio rowing. Antegrade flow involving both vertebral arteries. Electronically signed by: Alan Soliz MD 03/26/2018 1:53 PM EST
[2018-03-26] MEDS ORDERED: Morphine Sulfate Inj 2 MG/ML Vial IV.PUSH PRN (14:30)
[2018-03-26 14:36] LABS: Creatine Kinase 43 U/L (39-308)
[2018-03-26 17:19] LABS: Creatine Kinase 43 U/L (39-308)
[2018-03-26 17:50] LABS: Cholesterol 180 mg/dL (120-200)
[2018-03-26 17:53] LABS: Chol/HDL Ratio 2.98 Ratio; HDL Cholesterol 60.3 mg/dL (40.0-60.0); LDL Cholesterol,Calculated 100 mg/dL (0-99); Triglycerides 99 mg/dL (42-150)
[2018-03-26] MEDS: Morphine Inj 4 MG/ML Vial IV.PUSH PRN ×2 (19:34→23:17)
[2018-03-27] MEDS: Morphine Inj 4 MG/ML Vial IV.PUSH PRN ×2 (03:58→08:25)
[2018-03-27] MEDS ORDERED: amLODIPine 10 MG Tablet PO SCH (09:00)
[2018-03-27] MEDS ORDERED: Lisinopril 10 MG Tablet PO SCH (09:00)
--- NOTE | 2018-03-27 10:02 | P.PNIM ---
Subjective Interval history: Follow up chest pain and elevated BP. Patient seen and examined, lying in bed comfortably, much improved today. No acute complaints. Awaiting stress test today. VSS. Afebrile. Physical Exam Vital signs: Vital Signs 03/26/18 10:30 03/26/18 11:58 03/26/18 12:24 Temperature Pulse Rate 52 L 54 L 61 Respiratory Rate 16 16 Blood Pressure 168/99 H 154/103 H Pulse Oximetry 98 98 03/26/18 12:35 03/26/18 16:00 03/26/18 19:38 Temperature 96.3 F L 98.4 F Pulse Rate 54 L 58 L Respiratory Rate 18 18 Blood Pressure 153/114 H 113/74 Pulse Oximetry 95 96 03/26/18 20:00 03/26/18 20:20 03/26/18 23:37 Temperature 97.2 F L Pulse Rate 66 Respiratory Rate 18 18 18 Blood Pressure 138/87 Pulse Oximetry 97 03/27/18 00:00 03/27/18 00:40 03/27/18 04:00 Temperature 96 F L 97.3 F L Pulse Rate 65 72 67 Respiratory Rate 20 18 Blood Pressure 140/95 H 145/104 H 109/62 Pulse Oximetry 96 97 03/27/18 04:19 03/27/18 07:42 Temperature Pulse Rate Respiratory Rate 20 Blood Pressure Pulse Oximetry 94 L Intake & Output 03/26/18 03/27/18 03/27/18 18:59 06:59 18:59 Intake Total 365 / 365 Balance 365 / 365 Weight 80.6 kg 80.9 kg Intake: Oral 365 / 365 Other: # Voids 3 2 Date of Last Bowel Movement 03/26/18 03/26/18 Weight On Admission 80.6 kg - Constitutional no acute distress - Routine HEENT Exam Head: Present: normocephalic Eye: Present: EOMI, PERRL ENT: Present: mucous membranes moist - Routine Neck Exam Present: supple - Routine Cardiovascular Exam Present: RRR - Routine Abdominal Exam Present: soft - Routine Skin Exam Present: intact - Routine Neurological Exam Present: alert, oriented X3 - Detailed Neurological Exam: Coma Scale Eye Opening: Spontaneous - Routine Psychiatric Exam Present: normal affect Results - Labs CBC & Chem 7: 03/26/18 10:00 03/26/18 10:00 Laboratory Results - last 24 hr 03/26/18 03/26/18 03/26/18 10:00 10:00 10:00 CBC w Diff Auto diff final WBC 6.8 RBC 5.26 Hgb 16.9 Hct 50.3 MCV 95.6 MCH 32.1 MCHC 33.6 RDW 13.5 Plt Count 300 MPV 9.6 Neut % (Auto) 59.1 Lymph % (Auto) 31.4 Saline % (Auto) 7.2 Eos % (Auto) 1.3 Baso % (Auto) 1.0 Neut # (Auto) 4.0 Lymph # (Auto) 2.1 Saline # (Auto) 0.5 Eos # (Auto) 0.1 Baso # (Auto) 0.1 WBC Differential . Differential Comment . PT INR APTT Sodium Potassium Chloride Carbon Dioxide Anion Gap BUN Creatinine Estimated GFR Random Glucose Calcium Total Bilirubin AST ALT Alkaline Phosphatase Total Creatine Kinase Troponin I B-Natriuretic Peptide 21 Total Protein Albumin Triglycerides Cholesterol LDL Cholesterol, Calc HDL Cholesterol Cholesterol/HDL Ratio Lipase 854 H Ur Collection Type Urine Color Urine Clarity Urine pH Ur Specific [place] Urine Protein Urine Glucose (UA) Urine Ketones Urine Occult Blood Urine Nitrate Urine Bilirubin Urine Urobilinogen Ur Leukocyte Esterase Urine RBC Ur Squamous Epith Cells Micro UA Comment Ur Microscopic Review Urine Culture Comments Urine Opiates Screen Ur Barbiturates Screen Ur Amphetamines Screen U Benzodiazepines Scrn Urine Cocaine Screen U Cannabinoids Screen 03/26/18 03/26/18 03/26/18 10:00 10:00 11:40 CBC w Diff WBC RBC Hgb Hct MCV MCH MCHC RDW Plt Count MPV Neut % (Auto) Lymph % (Auto) Saline % (Auto) Eos % (Auto) Baso % (Auto) Neut # (Auto) Lymph # (Auto) Saline # (Auto) Eos # (Auto) Baso # (Auto) WBC Differential Differential Comment PT 9.7 L INR 1.0 APTT 29.1 Sodium 141 Potassium 3.9 Chloride 107 Carbon Dioxide 26.3 Anion Gap 8 BUN 10 Creatinine 1.10 Estimated GFR 69 L Random Glucose 100 Calcium 8.3 L Total Bilirubin 0.6 AST 20 ALT 36 Alkaline Phosphatase 69 Total Creatine Kinase 65 Troponin I Less than 0.02 L B-Natriuretic Peptide Total Protein 7.4 Albumin 3.7 Triglycerides Cholesterol LDL Cholesterol, Calc HDL Cholesterol Cholesterol/HDL Ratio Lipase Ur Collection Type Urine Color Urine Clarity Urine pH Ur Specific [place] Urine Protein Urine Glucose (UA) Urine Ketones Urine Occult Blood Urine Nitrate Urine Bilirubin Urine Urobilinogen Ur Leukocyte Esterase Urine RBC Ur Squamous Epith Cells Micro UA Comment Ur Microscopic Review Urine Culture Comments Urine Opiates Screen Neg Ur Barbiturates Screen Neg Ur Amphetamines Screen Neg U Benzodiazepines Scrn Neg Urine Cocaine Screen Neg U Cannabinoids Screen Neg 03/26/18 03/26/18 03/26/18 11:40 13:50 16:30 CBC w Diff WBC RBC Hgb Hct MCV MCH MCHC RDW Plt Count MPV Neut % (Auto) Lymph % (Auto) Saline % (Auto) Eos % (Auto) Baso % (Auto) Neut # (Auto) Lymph # (Auto) Saline # (Auto) Eos # (Auto) Baso # (Auto) WBC Differential Differential Comment PT INR APTT Sodium Potassium Chloride Carbon Dioxide Anion Gap BUN Creatinine Estimated GFR Random Glucose Calcium Total Bilirubin AST ALT Alkaline Phosphatase Total Creatine Kinase 43 43 Troponin I Less than 0.02 L Less than 0.02 L B-Natriuretic Peptide Total Protein Albumin Triglycerides 99 Cholesterol 180 LDL Cholesterol, Calc 100 H HDL Cholesterol 60.3 H Cholesterol/HDL Ratio 2.98 Lipase Ur Collection Type Clean catch Urine Color Yellow Urine Clarity Clear Urine pH 7.0 Ur Specific [place] 1.010 Urine Protein Negative Urine Glucose (UA) Negative Urine Ketones Negative Urine Occult Blood Negative Urine Nitrate Negative Urine Bilirubin Negative Urine Urobilinogen 0.2 Ur Leukocyte Esterase Negative Urine RBC 0-3 Ur Squamous Epith Cells 0-5 Micro UA Comment Culture not ind Ur Microscopic Review Microscopic reviewed Urine Culture Comments Culture not ind Urine Opiates Screen Ur Barbiturates Screen Ur Amphetamines Screen U Benzodiazepines Scrn Urine Cocaine Screen U Cannabinoids Screen 03/27/18 07:05 CBC w Diff WBC RBC Hgb Hct MCV MCH MCHC RDW Plt Count MPV Neut % (Auto) Lymph % (Auto) Saline % (Auto) Eos % (Auto) Baso % (Auto) Neut # (Auto) Lymph # (Auto) Saline # (Auto) Eos # (Auto) Baso # (Auto) WBC Differential Differential Comment PT INR APTT Sodium Potassium Chloride Carbon Dioxide Anion Gap BUN Creatinine Estimated GFR Random Glucose Calcium Total Bilirubin AST ALT Alkaline Phosphatase Total Creatine Kinase Troponin I B-Natriuretic Peptide Total Protein Albumin Triglycerides Cholesterol LDL Cholesterol, Calc HDL Cholesterol Cholesterol/HDL Ratio Lipase 288 Ur Collection Type Urine Color Urine Clarity Urine pH Ur Specific [place] Urine Protein Urine Glucose (UA) Urine Ketones Urine Occult Blood Urine Nitrate Urine Bilirubin Urine Urobilinogen Ur Leukocyte Esterase Urine RBC Ur Squamous Epith Cells Micro UA Comment Ur Microscopic Review Urine Culture Comments Urine Opiates Screen Ur Barbiturates Screen Ur Amphetamines Screen U Benzodiazepines Scrn Urine Cocaine Screen U Cannabinoids Screen - Imaging Impressions Carotid Doppler Study 03/26/18 00:00 CONCLUSION: Mild bilateral common carotid and proximal ICA atherosclerotic plaque without significant luminal narrowing. Antegrade flow involving both vertebral arteries. Chest X-Ray 03/26/18 09:59 CONCLUSION: Negative examination. Head CT 03/26/18 10:43 CONCLUSION: Negative CT Head non contrast. . Assessment and Plan - Assessment (1) Chest pain Code(s): R07.9 - Chest pain, unspecified Status: Acute (2) Hypertension Code(s): I10 - Essential (primary) hypertension Status: Acute - Plan This is a 57-year-old male patient who presented to the ED with: Chest pain History of CAD with MN -Patient presented with dizziness, lightheadedness and chest pain, these are similar complaints when he had his MN in the past. -Serial EKGs and serial troponins have been ordered for ruling out ACS purposes. Troponin trend flat -Continue on cardiac telemetry, monitor for any arrhythmias. None overnight. -EKG reviewed showing sinus bradycardia, controlled rate, right bundle kwame noted. No ST changes to indicate any ischemia. -CBC and BMP reviewed, essentially unremarkable. -Lipids noted. -Morphine IV available for pain as needed. Continue on daily aspirin. Nitroglycerin also available. -ACS ruled out with serial troponins and serial EKGs patient will undergo a cardiac Lexiscan today to further rule out any ischemia. -Patient is stable at this time and agreeable to plan. -Further hospitalization and treatment plan will depend on nuclear imaging results and cardiac workup. Hypertension -Systolic in the 180's, diastolic in the 120's initially on presentation. BNP normal. -Clonidine as needed for blood pressure control. -Continue lisinopril/HCTZ to regimen. Does complain of leg swelling at home. Non present on exam. DC amlodipine from home. -Check Echocardiogram and follow. Pending. -Continue to monitor BP trends. Elevated lipase. Resolved. -854 on presentation. Normal today. -Patient states he drinks roughly 4 beers per day. No history of abuse. No history of withdrawals. Advised to decrease to less than two per day. -LFTs WNL. -Completely asymptomatic. No abdominal pain. Tobacco abuse: Nicotine patch. Encouraged cessation. Patient states he wants to quit. DVT Prophylaxis: SCDs. Discharge Planning: Awaiting stress test.
[2018-03-27] MEDS ORDERED: Regadenoson Inj 0.4 MG/5 ML Syringe IV.PUSH ONE (10:38)
--- NOTE | 2018-03-27 11:50 | NM ---
EXAM DATE: 03/27/2018 11:45 AM EST AGE/SEX: 57 years / Male INDICATIONS:Angina. . Near syncopal episode, dizziness and chest tightness. CLINICAL DATA: This is the patient's initial encounter. Patient reports that signs and symptoms have been present for 2 days and indicates a pain score of 6/10. MEDICAL/SURGICAL HISTORY: Diverticulitis. Hypertension. . Colon. COMPARISON: [facility] [place], MYOCARDIAL PERF PHARM SPECT, 12/01/2015. . DOSE: 8.7 mCi Tc 99m Myoview at rest 27.4 mCi [id number] at stress 0.4 mg Lexiscan STRESS SYMPTOMS: Dyspnea, dizziness and weakness. EJECTION FRACTION: 56 % TECHNIQUE: The patient underwent pharmacologic stress with infusion of prescribed dose. Continuous ECG tracing was monitored during stress. Gated SPECT imaging was performed after stress and conventi onal SPECT imaging was performed at rest. The examination was performed on a SPECT/CT scanner, both attenuation and non-corrected datasets were reviewed. FINDINGS: Distribution: The maximum perfused segment at stress is in the anterolateral wall. Perfusion Study: The pattern of perfusion at stress is within normal limits. Gated Study: There are intact wall motion and wall thickening without hypokinetic or dyskinetic segm ents. The ejection fraction is calculated at 56%. RISK CATEGORY: Low (<1% Annual Motality Rate) CONCLUSION: Negative examination. Electronically signed by: Eleazar Desai MD 03/27/2018 11:48 AM EST
--- NOTE | 2018-03-27 13:51 | ECHRPT ---
Indication: SYNCOPE CONCLUSIONS Normal left ventricular size. Mild concentric left ventricular hypertrophy. The left ventricular systolic function is normal with an estimated ejection fraction in the range of 60-65%. No regional wall motion abnormalities are present. Mild aortic valve sclerosis is present. There is trace tricuspid valve regurgitation. BP: / HR: Rhythm: MEASUREMENTS (Male / Female) Normal Values Technical Quality: 2D ECHO LV Diastolic Diameter PLAX 4.8 cm 4.2 - 5.9 / 3.9 - 5.3 cm LV Systolic Diameter PLAX 3.3 cm IVS Diastolic Thickness 1.0 cm 0.6 - 1.0 / 0.6 - 0.9 cm LVPW Diastolic Thickness 1.0 cm 0.6 - 1.0 / 0.6 - 0.9 cm LV Relative Wall Thickness 0.4 RV Internal Dim ED PLAX 2.6 cm LVOT Diameter 2.2 cm Aortic Root Diameter 3.5 cm LA Systolic Diameter LX 2.7 cm 3.0 - 4.0 / 2.7 - 3.8 cm M-MODE AV Cusp Separation MM 2.3 cm DOPPLER AV Peak Velocity 146.0 cm/s AV Peak Gradient 8.5 mmHg AV Mean Gradient 5.0 mmHg AV Velocity Time Integral 28.8 cm LVOT Peak Velocity 94.7 cm/s LVOT Peak Gradient 3.6 mmHg LVOT Velocity Time Integral 17.9 cm AV Area Cont Eq vti 2.4 cm AV Area Cont Eq pk 2.5 cm Mitral E Point Velocity 81.9 cm/s Mitral A Point Velocity 72.6 cm/s Mitral E to A Ratio 1.1 LV E' Lateral Velocity 6.7 cm/s Mitral E to LV E' Lateral Ratio 12.2 LV E' Septal Velocity 7.0 cm/s Mitral E to LV E' Septal Ratio 11.7 TR Peak Velocity 217.0 cm/s TR Peak Gradient 18.8 mmHg Right Atrial Pressure 10.0 mmHg Pulmonary Artery Systolic Pressu 28.8 mmHg Right Ventricular Systolic Press 28.8 mmHg PV Peak Velocity 71.4 cm/s PV Peak Gradient 2.0 mmHg FINDINGS LEFT VENTRICLE Normal left ventricular size. Mild concentric left ventricular hypertrophy. The left ventricular systolic function is normal with an estimated ejection fraction in the range of 60-65%. No regional wall motion abnormalities are present. RIGHT VENTRICLE Normal right ventricular size and systolic function. LEFT ATRIUM The left atrial size is normal. RIGHT ATRIUM The right atrial size is normal. ATRIAL SEPTUM No atrial level shunt is demonstrated by color flow Doppler interrogation. AORTA The aortic root and proximal ascending aorta are not well visualized. AORTIC VALVE Mild aortic valve sclerosis is present. TRICUSPID VALVE There is trace tricuspid valve regurgitation. . PULMONARY VALVE The pulmonary valve is not well visualized. VESSELS The inferior vena cava was not well visualized. PERICARDIUM No pericardial effusion. Franklyn Hamm MD (Electronically Signed) Final Date:27 March 2018 13:51
--- NOTE | 2018-03-27 14:26 | ECG ---
Date Performed: 03/26/2018 Time Performed: 16:28:58 PTAGE: 57 years EKG: Sinus rhythm POSSIBLE LEFT ATRIAL ENLARGEMENT INCOMPLETE RIGHT BUNDLE BRANCH BLOCK BORDERLINE ECG PREVIOUS TRACING : 03/26/2018 13.47 Since previous tracing, no significant change noted DOCTOR: Joaquim Lerma Interpretating Date/Time 03/27/2018 14:25:26
--- NOTE | 2018-03-27 14:26 | ECG ---
Date Performed: 03/26/2018 Time Performed: 13:47:38 PTAGE: 57 years EKG: SINUS BRADYCARDIA INCOMPLETE RIGHT BUNDLE BRANCH BLOCK BORDERLINE ECG PREVIOUS TRACING : 03/26/2018 09.41 Since previous tracing, no significant change noted DOCTOR: Joaquim Lerma Interpretating Date/Time 03/27/2018 14:25:45
--- NOTE | 2018-03-27 14:27 | ECG ---
Date Performed: 03/26/2018 Time Performed: 09:41:12 PTAGE: 57 years EKG: SINUS BRADYCARDIA POSSIBLE LEFT ATRIAL ENLARGEMENT POSSIBLE RIGHT VENTRICULAR CONDUCTION DE LAY BORDERLINE ECG INTERPRETATION BASED ON A DEFAULT AGE OF 40 YEARS NO PREVIOUS TRACING DOCTOR: Joaquim Lerma Interpretating Date/Time 03/27/2018 14:25:54
--- NOTE | 2018-03-27 14:28 | TR ---
Date Performed: 03/27/2018 Time Performed: 11:05:41 DOCTOR: Joaquim Lerma DRUG LIST: CLINICAL HISTORY: REASON FOR TEST: Chest pain REASON FOR ENDING: OBSERVATION: CONCLUSION: COMMENTS: Lexiscan stress test was performed under standard four minute protocol. Radionuclide was injected one minute prior to ending the test. No electrocardiographic abormalities were present t o suggest ischemia. Nuclear imaging and interpretation are pending.
== END 2018-03-27 13:13 | disposition home or self-care (01) ==
LOC: PHEDA 09:32 → PHED 09:32 → PH3 12:07
PROVIDERS: ADMIT Internal Medicine; ATTEND Internal Medicine